=== PATIENT | female | born 1940 | race Caucasian/White ===

== ENCOUNTER 2017-10-31 06:53 | Inpatient (IN) | payer MEDICARE, SELFPAY ==
[2017-10-31 07:49] LABS: Actual Bicarbonate (HCO3a) 20.7 mEq/L (22-26); Base Excess (BEa) -3.2 mEq/L (0 (+/-) 2.5); CO2 Tension 33.6 mmHg (35.0-45.0); O2 Tension (PaO2) 76.5 mmHg (80.0-100.0); pH, Arterial 7.41 (7.35-7.45)
[2017-10-31 07:50] LABS: Analyzer IN Cardio ER; Calcium, Ionized 1.1 mmol/L (1.12-1.30); Hematocrit-ABG 41.6 % (36.0-47.0); Hemoglobin (Hb) 13.2 g/dL (12.0-16.0); Puncture Site RRA
[2017-10-31 08:10] LABS: Hemoglobin 13.9 g/dL (12.0-16.0); Mean Corpuscular HGB CONC 31.3 g/dL (32.0-36.0); Mean Corpuscular Hemoglobin 34.5 pg (27.0-31.0); Mean Platelet Volume 8.1 fL (7.4-10.4); Platelet Count 192 thou/uL (130-400); RBC Distribution Width 17.4 % (11.5-14.5); Red Blood Cell (RBC) Count 4.01 mill/uL (4.20-5.40); White Blood Cell (WBC) Count 12.3 thou/uL (4.8-10.8)
[2017-10-31 08:16] LABS: INR-International Normal Ratio 1.7; PTT 27.3 SEC (22.9-36.1); Prothrombin Time 20.9 SEC (12.0-14.7)
[2017-10-31 08:32] LABS: Band 7 % (5-11); Lymphocytes 2 % (21-51); MDiff Complete? YES; Myelocyte 1 % (0-0); Neutrophil 90 % (42-75); Polychromasia MODERATE = 3-4 cells (100X) (0-2/hpf)
[2017-10-31 08:39] LABS: AST (SGOT) 2072 U/L (5-34); Anion Gap 18 mmol/L (10-20); Bilirubin, Total 2.3 mg/dL (0.2-1.2); Calc. Creatinine Clearance 0 mL/min (70-130); Calcium 8.5 mg/dL (7.8-10.44); Carbon Dioxide 16 mmol/L (23-31); Chloride 106 mmol/L (98-107); Estimated GFR-MDRD 47; Potassium 4.9 mmol/L (3.5-5.1); Sodium 135 mmol/L (136-145); Troponin I 0.117 ng/mL (< 0.028)
--- NOTE | 2017-10-31 08:48 | RAD ---
CHEST ONE VIEW: History: Pulmonary fibrosis. Chest pain. Dyspnea. Comparison: 12-31-11 FINDINGS: Cardiac silhouette is magnified by projection. Pulmonary vasculature is accentuated by shallow inspir ation. Interstitial fibrotic changes throughout each lung have progressed since the prior study. Line ar atelectasis projects over each lung. Mediastinum is midline. No lobar consolidation or evidence of pneumothorax. Deformity of the left humeral neck suggests an old injury. IMPRESSION: Interval progression of interstitial fibrosis. POS: [facility]
[2017-10-31 08:53] LABS: D-Dimer Test Greater than 20.00 *mcg/mL (0.27-0.43)
[2017-10-31] MEDS ORDERED: cefTRIAXone\\ROCEPHIN 2 GM VIAL ONE (08:56)
[2017-10-31 08:57] LABS: ALT (SGPT) 3024 U/L (8-55); Alkaline Phosphatase 135 U/L (40-150); BUN (Urea Nitrogen) 35 mg/dL (9.8-20.1); Globulin 3.2 g/dL (2.4-3.5); Glucose 131 mg/dL (83-110)
--- NOTE | 2017-10-31 09:13 | CT ---
BRAIN CT WITHOUT IV CONTRAST: HISTORY: A 77-year-old female with a history of shortness of breath and difficulty breathing. Loss of appetit e and altered mental status. FINDINGS: Atrophy and chronic white matter ischemic changes. No focal mass or midline shift. No intra- or ext raaxial hemorrhage. Left centrum semiovale small white matter infarct. IMPRESSION: Atrophy, chronic white matter ischemic changes, and old infarct changes. No mass or bleed or other a cute process. POS: [facility]
[2017-10-31 09:20] LABS: Bilirubin Negative (Negative); Blood, Urine Moderate (Negative); Clarity CLOUDY (Clear); Glucose, Urine (Dipstick) Negative (Negative); Leukocyte Small (Negative); Nitrite Negative (Negative); Protein, Urine (Dipstick) 300 mg/dL (Neg-Trace); Specific Gravity, Urine 1.027 (1.002-1.036)
[2017-10-31 09:22] LABS: RBC/HPF 21-50 HPF (0-3); WBC/HPF 0-3 HPF (0-3)
[2017-10-31 09:24] LABS: Pathc Cast-AUWi Flag 3.92 (0-2.49)
[2017-10-31 09:44] LABS: Bacteria/HPF Rare-Few HPF (None Seen); Hyaline Casts/LPF 4-6 HYALINE CAST LPF (0-3 Hyaline); Renal Epithelial 0-3 HPF (0-3); Yeast-All Forms Rare HPF (None Seen)
[2017-10-31 09:45] LABS: Manual Microscopic Reviewed? No Path Casts Seen
[2017-10-31] MEDS ORDERED: Benzonatate 100 MG CAP PO PRN (10:20)
[2017-10-31] MEDS ORDERED: Mag-Al 1200 mg/1200 mg/30 ML UDCUP PO PRN (10:20)
[2017-10-31] MEDS ORDERED: Lorazepam 1 MG TAB PO PRN (10:20)
[2017-10-31] MEDS ORDERED: Acetaminophen 325 MG TAB PO PRN (10:20)
[2017-10-31] MEDS ORDERED: Docusate 100 MG CAP PO PRN (10:20)
[2017-10-31] MEDS ORDERED: Lorazepam 2 MG/ML VIAL SLOW IVP PRN (10:20)
[2017-10-31] MEDS ORDERED: Ondansetron HCl/PF 4 MG/2 ML Vial IVP PRN (10:20)
[2017-10-31 10:28] VITALS: BMI 27.5
[2017-10-31 11:02] LABS: Troponin I 0.145 ng/mL (< 0.028)
[2017-10-31] MEDS ORDERED: ISOVUE-370 76%-LOCM 1 ML ONE (11:15)
--- NOTE | 2017-10-31 11:32 | CT ---
CT ARTERIOGRAM CHEST WITH IV CONTRAST AND 3D MIP IMAGING: History: Chest pain, dyspnea. FINDINGS: No comparison. There is good contrast opacification of the pulmonary arteries. Contrast had not reach ed the aortic arch at the time of imaging. There is calcification within the arterial structures. Lungs are hyperinflated with emphysematous changes at each apex. Honeycombing is apparent at the lung bases with prominent peripheral interstitial thickening. At the posterior aspect of the junction of the pleural fissures on the right, a triangular area of soft tissue density measures up to 2.0 cm laquita meter and is favored to represent atelectasis. Scarring is present at each apex. No pleural fluid or mediastinal adenopathy. Within the partially visualized upper abdomen, cysts arise from the kidneys. There are degenerative a nd post-operative changes of the lumbar spine with multilevel vertebroplasty cement. At the posterior aspect of the superior segment right lower lobe, a 1.0 cm soft tissue density nodule abuts the posterior pleura. IMPRESSION: 1. No CT evidence of pulmonary embolus. 2. Left lower lobe peripheral nodule posterior, 1.0 cm. Please consider follow up CT in 6 months to e valuate for stability. 3. Severe COPD and interstitial fibrotic lung disease. 4. Atherosclerosis. POS: [facility]
[2017-10-31 11:59] LABS: Lactic Acid 2.4 mmol/L (0.5-2.2)
[2017-10-31] MEDS ORDERED: Furosemide 40 MG/4 ML VIAL SLOW IVP SCH ×2 (12:45→19:00)
--- NOTE | 2017-10-31 13:45 | ULT ---
ABDOMINAL ULTRASOUND: Date: 10-31-17 Provided Clinical History: Transaminitis and abdominal pain. FINDINGS: Visualized abdominal aorta, IVC, and pancreas appear normal. The liver demonstrates no evidence for m ass or intrahepatic biliary ductal dilatation. Increased echogenicity of the hepatic parenchyma sugge sts fatty infiltration. Common duct is not dilated. Right kidney demonstrates probable prominent extr arenal pelvis without evidence of caliectasis. Kidneys demonstrate no evidence for mass. Left kidney demonstrates no evidence for hydronephrosis. The spleen is not enlarged and demonstrates no focal abn ormality. The gallbladder is not visualized, compatible with the provided clinical history of prior c holecystectomy. IMPRESSION: 1. Findings suggesting fatty infiltration of the liver. 2. Prominence of the right renal pelvis which may reflect an extrarenal pelvis. If there is concern f or hydronephrosis, consider CT. POS: [facility]
[2017-10-31 14:21] LABS: Troponin I 0.187 ng/mL (< 0.028)
--- NOTE | 2017-10-31 14:23 | CON ---
DATE OF SERVICE: 10/31/2017 SERVICE: Pulmonary Medicine. REASON FOR CONSULTATION: IPF. HISTORY OF PRESENT ILLNESS: The patient is a 77-year-old [facility] female with past medical history significant for pulmonary fibrosis. This was diagnosed about 5 or 6 years ago. Since then, she has had progressive respiratory failure. At night, she sleeps under a nonrebreather. During the daytime, she requires a significant amount of oxygen. She was in her usual state of health until about 2 or 3 months ago. She had increasing dyspnea that prompted her move from [facility] to [place] permanently. The reason they made that change was because it was difficult for the patient to breathe at elevation. As such, she subsequently relocated here. Everything was fine until about 3 weeks ago. She started having panic attacks associated with exertion. Then, she started having mild panic attacks in the middle of the night which became increasingly severe. She did wake up in the middle of the night choking, gasping, and coughing. Last night, she had two separate panic attacks prompting her family to bring her to the hospital. In the hospital, there is evidence of significant volume overload. She has no known heart issues other than an arrhythmia that requires no medication. She denies any current fevers, chills, nausea or vomiting. She did not have any significant cough or sputum production, beyond baseline. PAST MEDICAL HISTORY: 1. Pulmonary fibrosis. 2. Chronic hypoxic respiratory failure. 3. Rheumatoid arthritis. 4. Chronic obstructive pulmonary disease, possible. 5. Gastroesophageal reflux disease. 6. Hypertension. PAST SURGICAL HISTORY: 1. Cholecystectomy. 2. Appendectomy. SOCIAL HISTORY: Negative for alcohol, tobacco or illicit drug use currently. She has no exposure to chemicals, dust or asbestos. She frequently visited [facility]. She has an [id number] history of smoking, but quit well over 10 years ago. FAMILY HISTORY: Noncontributory. ALLERGIES: No known drug allergies. MEDICATIONS: List of her outpatient and inpatient medications were reviewed. A couple of small updates were made. REVIEW OF SYSTEMS: General, head, ears, eyes, nose, throat, cardiovascular, respiratory, gastrointestinal, genitourinary, musculoskeletal, neurologic, and skin is negative except as mentioned in the HPI. PHYSICAL EXAMINATION: VITAL SIGNS: Afebrile, pulse 79, blood pressure 145/62, respirations 15, saturation 88% on 37% FiO2 and a PEEP of 5. GENERAL: The patient is awake and alert, in no apparent distress. LUNGS: Decent air entry. Dependently there are extensive crackles. Anteriorly , it is clear to auscultation. There is not much of a prolonged expiratory phase. No wheezing or rhonchi are appreciated. HEART: Normal rate, regular. ABDOMEN: Soft, nontender, nondistended. Bowel sounds positive. MUSCULOSKELETAL: No cyanosis or clubbing. There is 2+ pitting in the bilateral lower extremities. NEUROLOGIC: Grossly nonfocal. LABORATORY DATA: WBC 12.3 and uptrending, hemoglobin 13.9, platelets 192,000. Band count is only 7%. INR 1.7. A pH 7.41, pCO2 of 33, pO2 of 76. Creatinine 1.12, AST and ALT are both quite elevated in the 1000 range. BNP 2200, troponin is up trending to 0.145, lactate is going down to 2.4. Urinalysis is positive for leukocyte esterase and red blood cells. There are very few white blood cells present; however. Nitrites are negative. Urine culture is unremarkable to date. IMAGIN. Ultrasound of the abdomen demonstrates fatty infiltration of the liver. There is prominence of the right renal pelvis which may reflect extrarenal pelvis. There is no biliary dilation. 2. CT of the chest demonstrates extensive fibrotic lung changes in addition to emphysematous changes. No pulmonary embolism was identified on the CT. There is a small pulmonary nodule. It is also present. 3. Chest x-ray demonstrates chronic interstitial lung changes. 4. CT of the brain demonstrates no acute intracranial abnormality. There is atrophy of the white matter. ASSESSMENT: 1. Acute on chronic hypoxic respiratory failure. 2. Pulmonary fibrosis 2/2 RA, with acute exacerbation. 3. Rheumatoid arthritis, previously treated with Xeljanz. 3. Chronic obstructive pulmonary disease with acute exacerbation. 4. Shock liver. 5. Acute heart failure. PLAN: I agree with the ultrasound of the heart. We will aggressively diurese the patient until she returns to euvolemia. My suspicion is that we are dealing with a volume mediated exacerbation of severe lung disease. That being said, I will start an antibiotic and we will continue steroids. Pulmonary Critical Care will continue to follow along while the patient remains in this location. BiPAP will be weaned away. I will switch her over to BiPAP at 7/5, and decrease FiO2 as tolerated. 70 minutes have been devoted to this patient in various activities. I personally reviewed all imaging studies and laboratory data noted within this document. For fifty percent of this time, I was interacting with the patient at the bedside or coordinating care with the care team. For the remainder of the time I was immediately available to the patient in the hospital unit. HARESH
[2017-10-31] MEDS: Furosemide 40 MG/4 ML VIAL SLOW IVP SCH (14:27)
--- NOTE | 2017-10-31 17:06 | HP ---
PRIMARY CARE PHYSICIAN: Phu Lu M.D. CHIEF COMPLAINT: Severe panic attack. HISTORY OF PRESENT ILLNESS: Ms. Bates is a pleasant 77-year-old female who has a history of pulmon kt fibrosis, which is secondary to rheumatoid arthritis. She is on home oxygen at home. She came t o the emergency room as she was brought in by family members because she was having what they describ ed as a panic attack. They says that it happened several times and then last night it was the worse. They describe this attack as that she loses her strength, she was feeling extremely weak, she began trying to rip off her oxygen mask at home and was basically yelling out saying she feels like she wa s going to . Her daughter did not know what to do and as a result she brought her to the emergenc y room for evaluation. During these attacks, she feels lightheaded as well. She also feels like she is going to throw up, but she denies having any chest pain and it is difficult for me to determine w hether or not she is more short of breath. I was told by the ER physician that her oxygen saturation s would go down in the 70s; however, I was not able to elicit this history from the family. They say that she has been having these attacks twice a day for the last 2 weeks and it appears as if they ar e getting progressively worse. She also noted some increasing in lower extremity edema over the last 3-4 months, but she denies having any PND or orthopnea. She also denies any cough or congestion and no fevers or chills. In the ER, she was evaluated and had a chest x-ray in which she had bilateral interstitial pulmonary markings; however, there was no evidence of any consolidation and there was al so poor inspiratory effort. She had a CT scan of the brain, which was negative. It is also noted th at she had a significant transaminitis as well as an elevated D-dimer and natriuretic peptide and she is being admitted for further evaluation and treatment. REVIEW OF SYSTEMS: This is somewhat difficult to obtain as the patient is short of breath and is cur rently on BiPAP, but in general, she has had no fevers, no chills, no night sweats. No report of tosin ght loss. HEENT: No headaches. She has had some feeling of dizzy and lightheadedness, no sore thro at, rhinorrhea, neck pain, no adenopathy. Pulmonary: She has been having increasing shortness of br eath, but no cough, no congestion, no hemoptysis. Cardiovascular: She denies any chest pain. There has been no PND, no orthopnea. She has had increasing lower extremity edema. Gastrointestinal: Tamir phipps has had no abdominal pain, but she has had some nausea, no vomiting, no change in bowels. Genitour inary: No urinary frequency, hematuria, no hesitancy. Musculoskeletal: No muscle pains, weakness o r joint pains. Neurologic: No focal weakness, numbness, no seizures. Psychiatric: She does appear to be more anxious, but no history of any hoarse, complaints of any depression. PAST MEDICAL HISTORY: Significant for pulmonary fibrosis in which she is on at least 4-6 liters of o xygen at home. Also, rheumatoid arthritis. PAST SURGICAL HISTORY: She has had a cholecystectomy, appendectomy. ALLERGIES: BACTRIM. FAMILY HISTORY: No history of any known inheritable diseases. SOCIAL HISTORY: She is a former smoker. She quit 16 years ago. Prior to that, she smoked about a p ack a day for at least 40 years. She occasionally drinks. She is , has two children. Her da ughter, Shaista Vance, is her surrogate decision maker. Her code status is FULL CODE as she has n ot really thought much about code status prior. MEDICATIONS: Some of which are from [facility] and these include omeprazole, Anoro Ellipta, Xeljanz, folic acid, Visionace, Byron 30 mg, amlodipine 5 mg daily, Pacofen which is similar to baclofen and medication similar to Pulmicort. PHYSICAL EXAMINATION: GENERAL: She is alert and oriented. She appears to be in some distress due to dyspnea. VITAL SIGNS: Her blood pressure was 132/91, heart rate 77, respiratory rate of 28, temperature is 99 .7. HEENT: Pupils are equal, round, and reactive. Extraocular muscles are intact. Her sclerae are anic teric. Throat: No erythema, no exudates. NECK: No adenopathy, no bruits. LUNGS: Clear to auscultation. I did not appreciate any wheezing or rales; however, there was a decr ease in air movement. She may have had some fine crackles, but it was very difficult to hear. CARDIOVASCULAR: She had a normal S1, S2. I did not appreciate an S3 or S4. No murmurs, clicks or r ubs. ABDOMEN: Soft, it was nontender, nondistended. Positive for bowel sounds. No rebound or guarding. EXTREMITIES: She had some trace nonpitting edema. NEUROLOGIC: Neurologically, the exam is nonfocal. LABORATORY DATA AND IMAGING: White blood cell count was 12.3, hemoglobin 13.9, hematocrit is 44.3, p latelet count is 192. INR was 1.7. Sodium 135, potassium 4.9, chloride is 106, CO2 is 16, BUN of 35 , creatinine 1.12, glucose is 131. Lactic acid was 3.5, total bilirubin was 2.3, AST was 2072, ALT i s 3024. Natriuretic peptide was 2264. Troponin was 0.017. She had an EKG to sinus rhythm. There w as a Q-wave, isolated Q in lead III, otherwise nonspecific ST wave changes and she had a CT scan of t he brain in which there was no acute intracranial abnormalities. There was no mass or bleed. ASSESSMENT AND PLAN: 1. This is a 77-year-old female that presents to the emergency room with complaints of panic-like sy mptoms. I suspect this is likely due to respiratory distress. She has a history of what appears to be advanced pulmonary fibrosis. She sees Dr. Farfan as her diffuser operator. She appears to have deco mpensated and therefore is being admitted. She is currently requiring BiPAP to improve her oxygenati on. We will go ahead and continue the BiPAP and we will enlist the help of our pulmonologists here o n staff to help with other recommendations. We will continue the inhaled steroids, nebulizer as well as DuoNebs as needed and follow up on the CT angiogram of the chest. Her proBNP is elevated as well as she is reported to have increasing lower extremity edema. As a result, may have some degree of v olume overload which may be contributing to her symptoms as well and may benefit from a trial of diur esis. 2. Transaminitis, the etiology of this is unclear. This could be related to some extraarticular man ifestation of the rheumatoid arthritis or could be due to passive congestion of the liver as a result of right heart failure due to her severe lung disease. She may have had an echo done at [facility] where she normally receives her care. However, there is no record of an echo in our system, lik sahil we will go ahead and repeat the echo again at this time and also we will defer to Pulmonology as to the potential causes of the elevated transaminases and may also need to get GI opinion as well and we will order an abdominal ultrasound as well. 3. Elevated troponin, I suspect this is likely demand ischemia due to her advanced pulmonary fibrosi s and unless there is evidence of significant wall motion abnormality on echo, I would refrain from c onsulting Cardiology at this time. Further recommendations are to follow based on the patient's clin ical course.
--- NOTE | 2017-10-31 18:50 | PDOC.EVN ---
Event Note - Event Note Event Note: I spoke with the patient with regards to advanced care planning, as well as the patient's daughter Celso, who was present at the bedside. She has advanced Pulmonary fibrosis, on home oxygen at a fairly high rate. When I came to see her, she asked several times to go home, and she felt she would do better at home, despite her obvious respiratory distress. I asked her if her condition would worsen would she want to be placed on a ventilator, and she says she had not given it any thought before today. I explained to her and her daughter that this condition is not curable, and they should begin to have these discussions. They both appeared a bit bewildered, and said they would give it some more thought. At this time since she is unable to make a decision, she will be a FULL CODE. ACP- 15 minutes
[2017-10-31] MEDS: Enoxaparin Sodium 30 MG/0.3 ML SYRINGE SC SCH (20:17)
[2017-11-01 04:54] LABS: #Eosinphils 0.1 thou/uL (0.0-0.7); #Lymphocytes 0.4 thou/uL (1.20-3.40); #Monocytes 0.6 thou/uL (0.11-0.59); %Basophils 0.4 % (0.0-1.0); %Eosinophils 0.8 % (0.0-10.0); %Monocytes 5.5 % (0.0-10.0); %Neutrophils 89.4 % (42.0-75.0); Hemoglobin 13.1 g/dL (12.0-16.0); Mean Corpuscular Hemoglobin 35.5 pg (27.0-31.0); Mean Platelet Volume 8.9 fL (7.4-10.4); Platelet Count 166 thou/uL (130-400); RBC Distribution Width 16.9 % (11.5-14.5); Red Blood Cell (RBC) Count 3.69 mill/uL (4.20-5.40); White Blood Cell (WBC) Count 10.1 thou/uL (4.8-10.8)
[2017-11-01 05:15] LABS: Anion Gap 16 mmol/L (10-20); BUN (Urea Nitrogen) 32 mg/dL (9.8-20.1); Calc. Creatinine Clearance 37 mL/min (70-130); Calcium 8.5 mg/dL (7.8-10.44); Carbon Dioxide 27 mmol/L (23-31); Chloride 98 mmol/L (98-107); Estimated GFR-MDRD 41; Glucose 122 mg/dL (83-110); Sodium 137 mmol/L (136-145)
[2017-11-01 05:18] LABS: ALT (SGPT) 2553 U/L (8-55); AST (SGOT) 2485 U/L (5-34); Albumin 3.3 g/dL (3.4-4.8); Alkaline Phosphatase 124 U/L (40-150); Bilirubin, Direct 0.7 mg/dL (0.1-0.3); Bilirubin, Total 1.3 mg/dL (0.2-1.2)
[2017-11-01] MEDS: Furosemide 40 MG/4 ML VIAL SLOW IVP SCH ×2 (05:56→15:55)
[2017-11-01] MEDS: predniSONE 20 MG TAB PO SCH (08:04)
--- NOTE | 2017-11-01 13:59 | PDOC.PN ---
- Subjective Encounter Start Date: 11/01/17 Encounter Start Time: 13:50 Subjective: f/u for acute/chronic hypoxic resp failure, acute CHF exacerbation and -: pulmonary fibrosis/COPD. Remains on O2 by VM. Receiving Levaquin, -: Lasix, Duonebs and Prednisone. - Objective Resuscitation Status: Resuscitation Status FULL:Full Resuscitation MAR Reviewed: Yes Vital Signs & Weight: Vital Signs (12 hours) Temp Pulse Resp BP Pulse Ox 11/01/17 12:03 78 20 93 L 11/01/17 12:00 98.0 F 94 24 H 124/77 93 L 11/01/17 08:00 98.0 F 85 20 92 L 11/01/17 07:09 94 L 11/01/17 07:08 85 20 94 L 11/01/17 07:00 98.2 F 80 20 134/86 96 11/01/17 03:41 98.2 F 83 17 120/67 93 L 11/01/17 02:00 77 20 127/82 94 L Weight Weight 137 lb 8 oz I&O: 10/31/17 11/01/17 11/02/17 06:59 06:59 06:59 Intake Total 620 Output Total 3075 200 Balance -2455 -200 Result Diagrams: 11/01/17 03:38 11/01/17 03:38 Additional Labs: Microbiology 10/31/17 08:50 Urine Straight Catheter Urine Culture - Preliminary NO GROWTH AT 24 HOURS 10/31/17 07:40 Venous blood - Right Hand Blood Culture - Preliminary Specimen has been received and culture in progress. No Growth to date. 10/31/17 07:30 Venous blood - Left Hand Blood Culture - Preliminary Specimen has been received and culture in progress. No Growth to date. Laboratory Tests 10/31/17 10/31/17 10/31/17 07:40 07:40 07:40 WBC 12.3 H MCV 110.0 H Neutrophils % Neutrophils % (Manual) 90 H Creatinine 1.12 H Lactic Acid AST 2072 H ALT 3024 H Troponin I B-Natriuretic Peptide 2264.7 H 10/31/17 10/31/17 10/31/17 07:40 07:40 10:24 WBC MCV Neutrophils % Neutrophils % (Manual) Creatinine Lactic Acid 3.5 H AST ALT Troponin I 0.117 H 0.145 H B-Natriuretic Peptide 0511/01/17 11/01/17 13:35 03:38 03:38 WBC MCV Neutrophils % 89.4 H Neutrophils % (Manual) Creatinine Lactic Acid AST 2485 H ALT 2553 H Troponin I 0.187 H B-Natriuretic Peptide EKG Reviewed by me: Yes (Tele - SR in 90's, 2 runs SVT ) Phys Exam - Physical Examination Constitutional: NAD HEENT: PERRLA, moist MMs, sclera anicteric, oral pharynx no lesions Neck: no nodes, no JVD, supple, full ROM diminished bibasilar crackles Respiratory: no wheezing Cardiovascular: RRR, no significant murmur, no rub, gallop Gastrointestinal: soft, non-tender, no distention, positive bowel sounds Musculoskeletal: no edema, pulses present Neurological: non-focal, normal sensation, moves all 4 limbs Psychiatric: normal affect, A&O x 3 Skin: no rash, normal turgor, cap refill <2 seconds Dx/Plan (1) Acute CHF (congestive heart failure) Code(s): I50.9 - HEART FAILURE, UNSPECIFIED Status: Acute Qualifiers: Heart failure type: unspecified Qualified Code(s): I50.9 - Heart failure, unspecified Comment: Continue Lasix 40mg IV BID, monitor I/O's, daily weight, obtain 2D echo for evaluation of EF and wall motion (2) Acute and chronic respiratory failure with hypoxia Code(s): J96.21 - ACUTE AND CHRONIC RESPIRATORY FAILURE WITH HYPOXIA Status: Acute Comment: Improved oxygenation and off initial BiPAP, wean as clinically indicated and tolerated (3) Shock liver Code(s): K72.00 - ACUTE AND SUBACUTE HEPATIC FAILURE WITHOUT COMA Status: Acute Comment: Likely due to CHF, abd sono showed no obstruction, Hep A/B/C panel pending, serial monitoring, Hepatic doppler pending (4) CKD (chronic kidney disease), stage III Code(s): N18.3 - CHRONIC KIDNEY DISEASE, STAGE 3 (MODERATE) Status: Chronic Comment: Unclear baseline renal status, avoid nephrotoxic meds and contrast media, serial monitoring (5) Pulmonary fibrosis Code(s): J84.10 - PULMONARY FIBROSIS, UNSPECIFIED Status: Chronic Comment: Continue pulmonary supportive mgmt, continue Anoro Ellipta, Prednisone (6) SVT (supraventricular tachycardia) Code(s): I47.1 - SUPRAVENTRICULAR TACHYCARDIA Status: Acute Comment: Likely due to co-morbid conditions and poor respiratory status, consult Cardiology, obtain 2D echo - Plan plan discussed w/ family, continue antibiotics, PT/OT, manager social work, respiratory therapy, DVT proph w/SCDs Stable currently -: Continue Lasix 40mg IV BID -: Obtain 2D echo for EF -: Continue Prednisone, Levaquin -: AM lab: CMP * .
[2017-11-01 14:13] LABS: HBCM Index 0.09 S/CO (0-0.79); HBSAg Index 0.19 S/CO (0-0.99); Hep A IgM AB Non-Reactive (NonReactive); Hep B Surf Ag Non-Reactive S/CO (NonReactive); Hep C IgG Ab Non-Reactive (NonReactive); Hep C Index 0.18 S/CO (0-0.79); Hepatitis B Core IGM Abs Non-Reactive (NonReactive)
--- NOTE | 2017-11-01 19:51 | HP ---
DATE OF SERVICE: 11/01/2017 SERVICE: Pulmonary Medicine. HISTORY OF PRESENT: The patient is doing fine from a respiratory standpoint. Her breathing is actually a little bit better. She still feels extremely fatigued and has no appetite. Otherwise, there has been no interval change to her condition. PHYSICAL EXAMINATION: VITAL SIGNS: Afebrile, pulse 94, blood pressure 124/77, respirations 24, saturation 93% on 50% ventimask. GENERAL: The patient is awake and alert, in no apparent distress. LUNGS: Crackles are present dependently, but a little less intense today. HEART: Normal rate, regular. ABDOMEN: Soft, nontender, nondistended. Bowel sounds are positive. MUSCULOSKELETAL: No cyanosis or clubbing. There is no pitting in the bilateral lower extremities today. GENITOURINARY: No Jenkins. NEUROLOGIC: Grossly nonfocal. LABORATORY DATA: WBC 10.1, hemoglobin 13.1, platelets 166,000. Neutrophils are 90%. INR 1.7. Creatinine 1.27 and gently up trending. BUN 32, has improved. Basic metabolic profile is otherwise unremarkable. AST is up trended to 2500, ALT has improved to 2500. Total bilirubin is also down trending. Alkaline phosphatase remains normal. Troponin is increasing still. Blood cultures x2 and urine culture are unremarkable. ASSESSMENT: 1. Acute on chronic hypoxic respiratory failure. 2. Acute liver injury. 3. Pulmonary fibrosis with acute exacerbation. 4. Rheumatoid arthritis. 5. Chronic obstructive pulmonary disease with acute exacerbation. 6. Acute heart failure, suspected. PLAN: We will ask GI to see the patient to make certain we were not missing anything large. I will get a Doppler on the hepatic structures to make certain there is normal blood flow. Echocardiogram was suspended. We will reorder that study. Pulmonary Critical Care will continue to follow along. She will need to remain in the IMCU for the time being. We will wean away FiO2 as tolerated as we diurese the patient back into a euvolemic state. She is quickly approaching this. [facility]
--- NOTE | 2017-11-01 20:00 | CON ---
DATE OF CONSULTATION: 11/01/2017 HISTORY OF PRESENT ILLNESS: The patient is a 77-year-old female with severe pulmonary fibro sis who presented with increasing shortness of breath. She was started on citalopram a couple of day s ago because they felt she was having panic attacks. She feels lightheaded during these attacks. S he has had no nausea or vomiting. She denies any abdominal pain. She denies prior history of elevat ed liver function tests. She has moved here from [facility] approximately 6 months ago. PAST MEDICAL HISTORY: Pulmonary fibrosis, on home oxygen, rheumatoid arthritis. PAST SURGICAL HISTORY: Includes cholecystectomy and appendectomy. ALLERGIES: BACTRIM. SOCIAL HISTORY: She is a former smoker, does not drink. FAMILY HISTORY: Negative for GI or liver disease. MEDICATIONS: Includes Emflaza 30 mg p.o. daily, Ellipta 1 every day, Xeljanz 5 mg p.o. daily, omepra zole 40 mg p.o. every day, lorazepam 2 mg p.o. at bedtime, Ecotrin 81 mg p.o. daily, Norvasc 5 mg p.o . daily. ALLERGIES: Include PENICILLIN, SULFA, BACTRIM. REVIEW OF SYSTEMS: CONSTITUTIONAL: No fever or chills, no weight loss. EYES: No blurred vision or double vision. ENT: No sore throat or earaches. CARDIOVASCULAR: No chest pain or palpitation. P ULMONARY: Positive for shortness of breath. Positive for dyspnea on exertion. Positive for orthopn ea. GI: See above. : No hematuria or dysuria. MUSCULOSKELETAL: No joint pain or muscle weakne ss. SKIN: No rashes. NEUROLOGIC: No numbness or seizure activity. PHYSICAL EXAMINATION: GENERAL: Shows a thin female in no acute distress. VITAL SIGNS: Temperature is 98.0, pulse 78, respiratory rate 20, blood pressure 124/77. HEENT: Unremarkable. NECK: Supple. CHEST: Show bilateral rhonchi. CARDIOVASCULAR: Regular rate and rhythm. ABDOMEN: Soft and nontender without organomegaly or masses. EXTREMITIES: Show some edema. LABORATORY DATA AND IMAGING DATA: Shows white blood cell count of 10.1, hemoglobin 13, hematocrit 38 .5, MCV of 104, and platelet count 166. PT is 20.9 with an INR of 1.7. Chemistries significant for BUN 32, creatinine 1.27, glucose 122, total bilirubin 1.3, AST 2485, ALT 2553, albumin 3.3, BNP is 22 64. Abdominal ultrasound shows findings suggestive of fatty infiltration of the liver, prominence of the right renal pelvis. CTA showed no evidence of pulmonary embolism, left lower lobe peripheral no dule, severe COPD and interstitial fibrotic lung disease, atherosclerosis. Echocardiogram performed at [facility] showed normal right ventricular systolic function, left ventricular ejection fraction was 55%-60%. ASSESSMENT: 1. Markedly elevated transaminases as I suspect this is secondary to her underlying pulmonary fibros is but with an echocardiogram showing normal right ventricular function, this would make that less li jefe. I will review radiologic studies with radiologist and perform a more extensive workup for live r abnormalities. 2. Severe pulmonary fibrosis. 3. Rheumatoid arthritis on Xeljanz. RECOMMENDATIONS: 1. Repeat LFTs. 2. Hepatitis workup. 3. Review radiologic exams.
[2017-11-01] MEDS: Lorazepam 1 MG TAB PO SCH (20:55)
[2017-11-01] MEDS: Enoxaparin Sodium 30 MG/0.3 ML SYRINGE SC SCH (20:56)
[2017-11-02 06:02] LABS: ALT (SGPT) 1820 U/L (8-55); AST (SGOT) 745 U/L (5-34); Albumin 3.2 g/dL (3.4-4.8); Alkaline Phosphatase 121 U/L (40-150); Bilirubin, Direct 0.7 mg/dL (0.1-0.3); Bilirubin, Total 1.2 mg/dL (0.2-1.2)
[2017-11-02 06:11] LABS: Magnesium 1.8 mg/dL (1.6-2.6)
--- NOTE | 2017-11-02 08:51 | ULT ---
HEPATIC DOPPLER: HISTORY: Elevated AST/ALT. COMPARISON: None. TECHNIQUE: Mendez-scale, color-flow, and Doppler imaging with spectral wave-form analysis was performed in the [facility]. FINDINGS: The abdomen ultrasound was performed on 10/31/2017. Currently, only the Doppler images are performed . There is patency and normal directional flow in the visualized middle and left hepatic veins, the lisbet n portal vein, the right portal vein, the left portal vein, and the hepatic artery. The splenic vein and artery are also patent. IMPRESSION: Patent hepatic arterial and venous systems. Appropriate directional flow. POS: [facility]
[2017-11-02] MEDS ORDERED: TOFACITINIB CITRATE 5 MG PO SCH (09:00)
[2017-11-02] MEDS ORDERED: Furosemide 40 MG/4 ML VIAL SLOW IVP SCH (09:00)
[2017-11-02] MEDS ORDERED: [UNRECOGNIZED DRUG - OTHER] PO SCH (09:00)
[2017-11-02] MEDS ORDERED: Non-Formulary Item 1 EACH (Umeclidinium Brm/Vilanterol Tr [Anoro Ellipta] 1 INH) IH SCH (09:00)
[2017-11-02] MEDS ORDERED: Amlodipine 5 MG TAB PO SCH (09:00)
[2017-11-02] MEDS: predniSONE 20 MG TAB PO SCH (09:02)
[2017-11-02] MEDS: Aspirin 81 mg Enteric Coated Tablet PO SCH (09:02)
[2017-11-02] MEDS ORDERED: Ibuprofen 600 MG TAB PO PRN (11:56)
[2017-11-02] MEDS: Ondansetron ODT 4 MG TAB PO PRN (12:31)
--- NOTE | 2017-11-02 12:36 | PRG ---
DATE OF SERVICE: 11/02/2017 SUBJECTIVE: The patient complains of headache. She is not eating much. OBJECTIVE: VITAL SIGNS: Temperature 98.5, pulse of 100, respiratory rate 19, and blood pressure 129/87. CHEST: Chest shows rhonchi bilaterally. CARDIOVASCULAR: Regular rate and rhythm. ABDOMEN: Benign. LABORATORY DATA: Shows a total bilirubin of 1.2, AST of 745, ALT of 1820, ferritin of 1826. Hepatit is panel is negative. ASSESSMENT: 1. Abnormal liver function tests - suspect possibly some hepatic congestion from pulmonary fibrosis. 2. Pulmonary fibrosis. 3. Rheumatoid arthritis, on Xeljanz. RECOMMENDATIONS: Continue to follow LFTs.
--- NOTE | 2017-11-02 14:09 | PDOC.PN ---
- Subjective Encounter Start Date: 11/02/17 Encounter Start Time: 14:10 Subjective: f/u for acute/chronic hypoxic resp failure and acute diast CHF on O2 by VM. -: Overall feeling better. Less SOB, sitting in chair. No CP or fever. - Objective Resuscitation Status: Resuscitation Status FULL:Full Resuscitation MAR Reviewed: Yes Vital Signs & Weight: Vital Signs (12 hours) Temp Pulse Resp BP Pulse Ox 11/02/17 13:14 80 16 11/02/17 12:03 98.4 F 112 H 18 110/65 94 L 11/02/17 09:02 100 11/02/17 08:30 91 L 11/02/17 08:11 100 11/02/17 08:10 100 16 11/02/17 07:56 98.5 F 83 19 92 L 11/02/17 07:29 98.5 F 83 19 129/87 100 Weight Weight 126 lb 8 oz I&O: 11/01/17 11/02/17 11/03/17 06:59 06:59 06:59 Intake Total 620 350 Output Total 3075 725 Balance -2455 -375 Result Diagrams: 11/01/17 03:38 11/01/17 03:38 Additional Labs: Microbiology 10/31/17 08:50 Urine Straight Catheter Urine Culture - Final NO GROWTH AT 48 HOURS 10/31/17 08:50 Urine Straight Catheter Urine Culture - Preliminary NO GROWTH AT 24 HOURS 10/31/17 07:40 Venous blood - Right Hand Blood Culture - Preliminary Specimen has been received and culture in progress. No Growth to date. 10/31/17 07:40 Venous blood - Right Hand Blood Culture - Preliminary NO GROWTH AT 48 HOURS 10/31/17 07:30 Venous blood - Left Hand Blood Culture - Preliminary Specimen has been received and culture in progress. No Growth to date. 10/31/17 07:30 Venous blood - Left Hand Blood Culture - Preliminary NO GROWTH AT 48 HOURS Laboratory Tests 10/31/17 10/31/17 10/31/17 07:40 07:40 07:40 WBC 12.3 H MCV 110.0 H Neutrophils % Neutrophils % (Manual) 90 H Creatinine 1.12 H Lactic Acid Magnesium Iron TIBC Ferritin Direct Bilirubin AST 2072 H ALT 3024 H Troponin I B-Natriuretic Peptide 2264.7 H 10/31/17 10/31/17 10/31/17 07:40 07:40 10:24 WBC MCV Neutrophils % Neutrophils % (Manual) Creatinine Lactic Acid 3.5 H Magnesium Iron TIBC Ferritin Direct Bilirubin AST ALT Troponin I 0.117 H 0.145 H B-Natriuretic Peptide 10/31/17 11/01/17 11/01/17 13:35 03:38 03:38 WBC MCV Neutrophils % 89.4 H Neutrophils % (Manual) Creatinine Lactic Acid Magnesium Iron TIBC Ferritin Direct Bilirubin 0.7 H AST 2485 H ALT 2553 H Troponin I 0.187 H B-Natriuretic Peptide 11/02/17 11/02/17 11/02/17 04:24 04:24 04:24 WBC MCV Neutrophils % Neutrophils % (Manual) Creatinine Lactic Acid Magnesium 1.8 Iron 98 TIBC 348 Ferritin 1826.62 H Direct Bilirubin 0.7 H AST 745 H ALT 1820 H Troponin I B-Natriuretic Peptide Radiology Reviewed by me: Yes (Abd sono - neg for venous thrombus) EKG Reviewed by me: Yes (Tele - intermittent SVT in 110's) Phys Exam - Physical Examination Constitutional: NAD HEENT: PERRLA, moist MMs, sclera anicteric, oral pharynx no lesions Neck: no nodes, no JVD, supple diminished with occasional crackles Respiratory: no wheezing, no rhonchi S1, S2 Cardiovascular: RRR, no significant murmur, no rub, gallop Gastrointestinal: soft, non-tender, no distention, positive bowel sounds Musculoskeletal: no edema, pulses present Neurological: non-focal, normal sensation, moves all 4 limbs Psychiatric: normal affect, A&O x 3 Skin: no rash, normal turgor, cap refill <2 seconds Dx/Plan (1) Acute CHF (congestive heart failure) Code(s): I50.9 - HEART FAILURE, UNSPECIFIED Status: Acute Qualifiers: Heart failure type: unspecified Qualified Code(s): I50.9 - Heart failure, unspecified Comment: Continue Lasix 40mg IV daily, monitor I/O's, daily weight, diastolic dysfunction noted on most recent echo 10/21/17, EF 55-60%, recheck Echo with attention to RV and Tricuspid excursion as concern for pulmonary HTN (2) Acute and chronic respiratory failure with hypoxia Code(s): J96.21 - ACUTE AND CHRONIC RESPIRATORY FAILURE WITH HYPOXIA Status: Acute Comment: Improved oxygenation and off initial BiPAP, VM with weaning as clinically tolerated (3) Shock liver Code(s): K72.00 - ACUTE AND SUBACUTE HEPATIC FAILURE WITHOUT COMA Status: Acute Comment: Likely due to CHF, abd sono showed no obstruction, Hep A/B/C panel pending, serial monitoring, Hepatic doppler negative, improving LFT trend (4) CKD (chronic kidney disease), stage III Code(s): N18.3 - CHRONIC KIDNEY DISEASE, STAGE 3 (MODERATE) Status: Chronic Comment: Unclear baseline renal status, avoid nephrotoxic meds and contrast media, serial monitoring (5) Pulmonary fibrosis Code(s): J84.10 - PULMONARY FIBROSIS, UNSPECIFIED Status: Chronic Comment: Continue pulmonary supportive mgmt, continue Anoro Ellipta, Prednisone (6) SVT (supraventricular tachycardia) Code(s): I47.1 - SUPRAVENTRICULAR TACHYCARDIA Status: Acute Comment: Likely due to co-morbid conditions and poor respiratory status, start low-dose Coreg 3.125mg BID - Plan plan discussed w/ family, continue antibiotics, PT/OT, social service coordinator, respiratory therapy, out of bed/ambulate, DVT proph w/SCDs continue supportive mgmt -: Continue Levaquin 750mg po daily -: Continue Prednisone 40mg daily -: Continue Lasix 40mg IV daily -: Start Coreg 3.125mg BID * AM lab: CMP, Mg++
--- NOTE | 2017-11-02 14:53 | PRG ---
DATE OF SERVICE: 11/02/2017 SERVICE: Pulmonary Medicine. INTERVAL HISTORY: The patient is doing great from a respiratory standpoint. Her liver function has actually improved a little bit. She denies any current chest pain, nausea, vomiting, fevers or chills. Overnight, there were no events. She has been weaned off of 4 liters nasal cannula, but still remains on her 50% Ventimask. PHYSICAL EXAMINATION: VITAL SIGNS: Afebrile, pulse 112, blood pressure 110/65, respirations 18, saturation 94% on 50% Ventimask. HEENT: Normocephalic, atraumatic. Sclerae are white, conjunctivae pink. Oral mucosa is moist without lesions. LUNGS: Better air entry. No prolonged expiratory phase is present. Dependent crackles are present, but less extensive. HEART: Normal rate, regular. ABDOMEN: Soft, nontender, and nondistended. Bowel sounds are positive. MUSCULOSKELETAL: No cyanosis or clubbing. There is no pitting in the bilateral lower extremities. NEUROLOGIC: Grossly nonfocal. LABORATORY DATA: AST and ALT are downtrending beautifully. Total bilirubin is down to 1.2. Ferritin 1800. Iron and TIBC are unremarkable. Urinalysis and blood cultures x2 are negative. IMAGING DATA: Ultrasound of the abdomen demonstrates normal blood flow. ASSESSMENT: 1. Acute on chronic hypoxic respiratory failure. 2. Acute liver injury secondary to passive congestion, resolving. 3. Pulmonary fibrosis with acute exacerbation. 4. Rheumatoid arthritis. 5. Chronic obstructive pulmonary disease with acute exacerbation. 6. Normal echocardiogram at [facility] recently. DISCUSSION AND PLAN: With the massive volume overload on the recent CT of the chest, I am doubtful that her RV function is perfectly normal as suggested on the echocardiogram done at [facility]. As such, I wanted to repeat a limited echo of the RV with attention to the tricuspid annular systolic excursion. Appreciate GI recommendations. If she is doing well tomorrow, she can be considered for transition to the floor and likely home on Friday or Friday of this week. She may benefit from a pulmonary hypertension evaluation in the outpatient setting. HARESH
[2017-11-02] MEDS ORDERED: Carvedilol 3.125 MG TAB PO SCH (17:00)
[2017-11-02 17:01] LABS: ANA Symphony (Qualitative) Negative (Negative); EliA Vaculitis New Method **** NEW METHOD ****; Mitochondrial Ab 0.8 U/mL (<4 Negative); dsDNA IgG Antibody 0.7 IU/mL (<10 Negative)
[2017-11-02] MEDS: Enoxaparin Sodium 30 MG/0.3 ML SYRINGE SC SCH (20:39)
[2017-11-03] MEDS: Lorazepam 1 MG TAB PO SCH ×2 (01:58→21:21)
--- NOTE | 2017-11-03 02:24 | CON ---
DATE OF CONSULTATION: 11/02/2017 HISTORY OF PRESENT ILLNESS: The patient is a 77-year-old, white female with history of pulmonary fibrosis, felt to be secondary to her rheumatoid arthritis. She has had progressive respiratory failure and uses a nonrebreather at night. She also requires oxygen during the day. [place] [facility] to [place]. She was doing well until several weeks ago when she started having panic attacks associated with exertion. She would have episodes of PND, where she would awaken at night coughing and gasping for air. She denies any chest discomfort. She has been found to have SVT here in the hospital, and she denies ever have any palpitations. PAST MEDICAL HISTORY: Rheumatoid arthritis, COPD, GERD, hypertension, pulmonary fibrosis. OPERATIONS: Appendectomy, cholecystectomy. MEDICATIONS AT HOME: Include Norvasc 5 q.a.m., aspirin 81 daily, lorazepam 2 mg at bedtime, omeprazole 10 daily, and Anoro Ellipta. ALLERGIES: PENICILLINS, TRIMETHOPRIM and SULFAMETHOXAZOLE. SOCIAL HISTORY: She does not smoke at the present time. She did have an 80- pack-year smoking history, but stopped 10 years ago. FAMILY HISTORY: Negative for coronary artery disease. REVIEW OF SYSTEMS: Otherwise, unremarkable. PHYSICAL EXAMINATION: VITAL SIGNS: Blood pressure 89/59 after she has received a dose of carvedilol 3.125 approximately 2 hours ago. HEENT: PERRL. LUNGS: Chest revealed somewhat distant breath sounds with occasional crackles. CARDIAC: S1 and S2 are normal, without any S3, S4 or murmurs. ABDOMEN: Normal bowel sounds, without tenderness, organomegaly. EXTREMITIES: Revealed no clubbing, cyanosis or edema. NEUROLOGIC: Grossly intact. SKIN: Warm and dry. LABORATORY: EKG on admission revealed normal sinus rhythm with nonspecific ST and T-wave changes. She has had frequent episodes of supraventricular tachycardia with rates of 150 up to 187 per minute. This probably is AV carrol reentrant tachycardia. White count 10,100, hemoglobin 13.1, hematocrit 38.5, platelets 166,000. INR 1.7. ABGs: A pH 7.41, pCO2 of 33.6, pO2 of 76.5. Sodium 137, potassium 4.0, chloride 98, carbon dioxide 27, BUN 32, creatinine 1.27. AST 2485, ALT 2553. Troponin I 0.187. Hepatitis A, B and C screen is negative. IMPRESSION: 1. 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 2. Normal left ventricular ejection fraction on echocardiogram at [facility] several weeks ago. 3. Pulmonary fibrosis. 4. Rheumatoid arthritis. 5. Hypertension, on Norvasc 5 mg at home. RECOMMENDATIONS: She is unaware when she is having her supraventricular tachycardia. PLAN: I will discontinue the carvedilol since this appears to have made her hypotensive, and we will also discontinue the Norvasc.I feel that she should be placed on Cardizem in the hopes of controlling her blood pressure as well as suppressing the supraventricular tachycardia. If this is not effective, then consideration could be given to radiofrequency ablation. We will follow the patient with you. HARESH
[2017-11-03 04:27] LABS: ALT (SGPT) 1300 U/L (8-55); AST (SGOT) 305 U/L (5-34); Albumin 3.1 g/dL (3.4-4.8); Alkaline Phosphatase 104 U/L (40-150); Anion Gap 14 mmol/L (10-20); BUN (Urea Nitrogen) 43 mg/dL (9.8-20.1); Bilirubin, Total 1.1 mg/dL (0.2-1.2); Calc. Creatinine Clearance 26 mL/min (70-130); Calcium 8.4 mg/dL (7.8-10.44); Carbon Dioxide 33 mmol/L (23-31); Chloride 94 mmol/L (98-107); Estimated GFR-MDRD 32; Globulin 2.6 g/dL (2.4-3.5); Glucose 109 mg/dL (83-110); Magnesium 1.9 mg/dL (1.6-2.6); Potassium 3.4 mmol/L (3.5-5.1); Protein, Total 5.7 g/dL (6.0-8.3); Sodium 138 mmol/L (136-145)
[2017-11-03] MEDS: Aspirin 81 mg Enteric Coated Tablet PO SCH (08:47)
[2017-11-03] MEDS: predniSONE 20 MG TAB PO SCH (08:48)
[2017-11-03] MEDS ORDERED: Potassium Chloride 20 MEQ TAB PO SCH (11:30)
[2017-11-03] MEDS: Sodium Chloride 0.9% 500 ML IV SCH ×2 (11:56→17:07)
--- NOTE | 2017-11-03 14:14 | PDOC.PN ---
- Subjective Encounter Start Date: 11/03/17 Encounter Start Time: 14:15 Subjective: f/u for acute/chronic hypoxic resp failure on chronic O2 supplementation -: at home. Remains on high-flow VM. Hypotension noted after receiving -: Cardizem for intermittent SVT. Feels weak and unable to work with PT - Objective Resuscitation Status: Resuscitation Status FULL:Full Resuscitation MAR Reviewed: Yes Vital Signs & Weight: Vital Signs (12 hours) Temp Pulse Pulse Pulse Pulse Pulse Resp 11/03/17 13:55 91 19 11/03/17 11:37 97.7 F 94 20 11/03/17 11:01 72 85 80 79 11/03/17 08:00 97.9 F 74 18 11/03/17 07:37 97.9 F 74 18 11/03/17 07:12 91 16 11/03/17 03:00 98.0 F 93 20 BP BP BP BP BP Pulse Ox Pulse Ox 11/03/17 13:55 93 L 11/03/17 11:37 90/63 95 11/03/17 11:01 96/59 L 89/62 L 83/53 L 88/52 L 96 11/03/17 08:00 93 L 11/03/17 07:37 91/59 L 93 L 11/03/17 07:12 96 11/03/17 03:00 94/63 97 Pulse Ox Pulse Ox Pulse Ox 11/03/17 13:55 11/03/17 11:37 11/03/17 11:01 79 L 90 L 83 L 11/03/17 08:00 11/03/17 07:37 11/03/17 07:12 11/03/17 03:00 Weight Weight 123 lb 9.6 oz I&O: 11/02/17 11/03/17 11/04/17 06:59 06:59 06:59 Intake Total 350 990 Output Total 103 9255 Balance -375 -735 Result Diagrams: 11/01/17 03:38 11/03/17 03:46 Additional Labs: Microbiology 10/31/17 08:50 Urine Straight Catheter Urine Culture - Final NO GROWTH AT 48 HOURS 10/31/17 08:50 Urine Straight Catheter Urine Culture - Preliminary NO GROWTH AT 24 HOURS 10/31/17 07:40 Venous blood - Right Hand Blood Culture - Preliminary Specimen has been received and culture in progress. No Growth to date. 10/31/17 07:40 Venous blood - Right Hand Blood Culture - Preliminary NO GROWTH AT 48 HOURS 10/31/17 07:30 Venous blood - Left Hand Blood Culture - Preliminary Specimen has been received and culture in progress. No Growth to date. 10/31/17 07:30 Venous blood - Left Hand Blood Culture - Preliminary NO GROWTH AT 48 HOURS Laboratory Tests 10/31/17 10/31/17 10/31/17 07:40 07:40 07:40 WBC 12.3 H MCV 110.0 H Neutrophils % Neutrophils % (Manual) 90 H BUN Creatinine 1.12 H Lactic Acid Magnesium Iron TIBC Ferritin Direct Bilirubin AST 2072 H ALT 3024 H Alkaline Phosphatase Troponin I B-Natriuretic Peptide 2264.7 H 10/31/17 10/31/17 10/31/17 07:40 07:40 10:24 WBC MCV Neutrophils % Neutrophils % (Manual) BUN Creatinine Lactic Acid 3.5 H Magnesium Iron TIBC Ferritin Direct Bilirubin AST ALT Alkaline Phosphatase Troponin I 0.117 H 0.145 H B-Natriuretic Peptide 10/31/17 11/01/17 11/01/17 13:35 03:38 03:38 WBC MCV Neutrophils % 89.4 H Neutrophils % (Manual) BUN 32 H Creatinine 1.27 H Lactic Acid Magnesium Iron TIBC Ferritin Direct Bilirubin AST ALT Alkaline Phosphatase Troponin I 0.187 H B-Natriuretic Peptide 11/01/17 11/02/17 11/02/17 03:38 04:24 04:24 WBC MCV Neutrophils % Neutrophils % (Manual) BUN Creatinine Lactic Acid Magnesium 1.8 Iron 98 TIBC 348 Ferritin Direct Bilirubin 0.7 H 0.7 H AST 2485 H 745 H ALT 2553 H 1820 H Alkaline Phosphatase Troponin I B-Natriuretic Peptide 11/02/17 11/03/17 04:24 03:46 WBC MCV Neutrophils % Neutrophils % (Manual) BUN Creatinine Lactic Acid Magnesium Iron TIBC Ferritin 1826.62 H Direct Bilirubin AST 305 H ALT 1300 H Alkaline Phosphatase 104 Troponin I B-Natriuretic Peptide EKG Reviewed by me: Yes (Tele - SR in 70's) Phys Exam - Physical Examination Constitutional: NAD alert, responsive HEENT: PERRLA, moist MMs, sclera anicteric, oral pharynx no lesions Neck: no nodes, no JVD, supple, full ROM diminished in bases Respiratory: no rales, no rhonchi, clear to auscultation bilateral S1, S2 Cardiovascular: RRR, no significant murmur, no rub, gallop Gastrointestinal: soft, non-tender, no distention, positive bowel sounds Musculoskeletal: no edema, pulses present Neurological: non-focal, normal sensation, moves all 4 limbs Psychiatric: normal affect, A&O x 3 Skin: no rash, normal turgor, cap refill <2 seconds Dx/Plan (1) Hypotension Status: Acute Comment: Iatrogenic, decrease Cardizem 30mg q6h, IVF NS 100ml/h (2) CRICKET (acute kidney injury) Code(s): N17.9 - ACUTE KIDNEY FAILURE, UNSPECIFIED Status: Acute Comment: Continue IVF's, avoid nephrotoxic meds and minimize contrast exposure, repeat creat in am (3) Acute CHF (congestive heart failure) Code(s): I50.9 - HEART FAILURE, UNSPECIFIED Status: Acute Qualifiers: Heart failure type: unspecified Qualified Code(s): I50.9 - Heart failure, unspecified Comment: D/C Lasix due to CRICKET and hypotension, monitor I/O's, daily weight, diastolic dysfunction noted on most recent echo 10/21/17, EF 55-60%, recheck Echo with attention to RV and Tricuspid excursion as concern for pulmonary HTN (4) Acute and chronic respiratory failure with hypoxia Code(s): J96.21 - ACUTE AND CHRONIC RESPIRATORY FAILURE WITH HYPOXIA Status: Acute Comment: Improved oxygenation and off initial BiPAP, VM with weaning as clinically tolerated, chronic O2 supplementation at home (5) Shock liver Code(s): K72.00 - ACUTE AND SUBACUTE HEPATIC FAILURE WITHOUT COMA Status: Acute Comment: Likely due to CHF, abd sono showed no obstruction, Hepatic doppler negative, improving LFT trend (6) CKD (chronic kidney disease), stage III Code(s): N18.3 - CHRONIC KIDNEY DISEASE, STAGE 3 (MODERATE) Status: Chronic Comment: Unclear baseline renal status, avoid nephrotoxic meds and contrast media, serial monitoring (7) Pulmonary fibrosis Code(s): J84.10 - PULMONARY FIBROSIS, UNSPECIFIED Status: Chronic Comment: Continue pulmonary supportive mgmt, continue Anoro Ellipta, Prednisone (8) SVT (supraventricular tachycardia) Code(s): I47.1 - SUPRAVENTRICULAR TACHYCARDIA Status: Acute Comment: Likely due to co-morbid conditions, Cardizem 30mg po q6h - Plan plan discussed w/ family, continue antibiotics, PT/OT, pediatric social worker, respiratory therapy, DVT proph w/SCDs Stable overall -: Continue IVF's NS 100ml/h -: Decrease Levaquin 500mg daily -: PT for mobilization/ROM exercises -: AM lab: CMP, Mg++ * Likely home in 24-48h
--- NOTE | 2017-11-03 16:31 | PRG ---
DATE OF SERVICE: 11/03/2017 SUBJECTIVE: Ms. Bates says she is feeling a little bit better. Her p.o. intake is quite poor. I have asked the nurses to get her some vanilla Ensure to mix with ice cream to see if she will take th is, she has just been sipping on some water at the bedside. Her family is telling me that she has no t eaten for 3 days prior to admission. OBJECTIVE: VITAL SIGNS: She is afebrile, heart rate 74, respiratory 20, oximetry 95 on facemask, blood pressure 90/63. LUNGS: Remarkable for fine crackles at her bases. HEART: Regular rhythm, no S3. ABDOMEN: Soft and nontender. EXTREMITIES: Without clubbing, cyanosis, or edema. NEUROLOGIC: Nonfocal. LABORATORY DATA: Sodium 138, potassium 3.4, chloride 94, bicarbonate 33, BUN 43, creatinine 1.57 up from 1.27. Her liver enzymes: AST is down from 2485 to 305, ALT is down from 2553 to 1300. Bilirub in is normal. Albumin is 3.1. IMPRESSION: 1. Pulmonary fibrosis. 2. Rheumatoid arthritis. 3. Chronic obstructive pulmonary disease. 4. Hepatic enzymitis that is improving. With her rise in her creatinine, her furosemide has been put hold. Continue current care. She feels the nebulizer treatments seem to be helping.
[2017-11-03] MEDS: Enoxaparin Sodium 30 MG/0.3 ML SYRINGE SC SCH (21:21)
[2017-11-04 06:00] LABS: ALT (SGPT) 944 U/L (8-55); AST (SGOT) 144 U/L (5-34); Albumin 2.8 g/dL (3.4-4.8); Alkaline Phosphatase 88 U/L (40-150); Anion Gap 14 mmol/L (10-20); BUN (Urea Nitrogen) 39 mg/dL (9.8-20.1); Calc. Creatinine Clearance 36 mL/min (70-130); Calcium 8.1 mg/dL (7.8-10.44); Carbon Dioxide 29 mmol/L (23-31); Chloride 99 mmol/L (98-107); Estimated GFR-MDRD 46; Globulin 2.7 g/dL (2.4-3.5); Glucose 128 mg/dL (83-110); Magnesium 1.8 mg/dL (1.6-2.6); Potassium 3.5 mmol/L (3.5-5.1); Protein, Total 5.5 g/dL (6.0-8.3); Sodium 138 mmol/L (136-145)
[2017-11-04] MEDS: predniSONE 20 MG TAB PO SCH (07:49)
[2017-11-04] MEDS: Aspirin 81 mg Enteric Coated Tablet PO SCH (07:49)
--- NOTE | 2017-11-04 11:06 | PRG ---
DATE OF SERVICE: 11/04/2017 SUBJECTIVE: The patient is feeling well today from a GI standpoint. OBJECTIVE: VITAL SIGNS: Temperature 97.3, pulse 70, respiratory rate 16, blood pressure 93/53. CHEST: Clear. CARDIOVASCULAR: Regular rate and rhythm. ABDOMEN: Benign. LABORATORY DATA: Shows liver function tests to be progressively improving with the AST of 144 and AL T of 944. Patient had an echocardiogram which showed severe elevated pulmonary artery pressures, sev erely enlarged right ventricular cavity. ASSESSMENT: 1. Abnormal liver function tests, probably secondary to hepatic congestion. 2. Hepatic congestion secondary to right heart abnormalities. RECOMMENDATIONS/DISCUSSION: 1. The patient seems to be improving, would maybe check her LFTs as an outpatient. 2. We will sign off.
[2017-11-04 15:21] LABS: Smooth Muscle Total ABS 5 Units (0-19)
--- NOTE | 2017-11-04 16:12 | PDOC.PN ---
- Subjective Encounter Start Date: 11/04/17 Encounter Start Time: 16:00 Subjective: f/u for acute/chronic hypoxic resp failure on VM. Still weak and BP low -: after starting Cardizem for NSVT. Feels tired and weak but no N/V/CP -: Appetite decreased. - Objective Resuscitation Status: Resuscitation Status FULL:Full Resuscitation MAR Reviewed: Yes Vital Signs & Weight: Vital Signs (12 hours) Temp Pulse Resp BP Pulse Ox 11/04/17 13:21 68 17 93 L 11/04/17 12:30 97.6 F 68 18 79/47 L 94 L 11/04/17 08:00 97.3 F L 70 16 91 L 11/04/17 07:55 97.3 F L 70 16 93/53 L 91 L 11/04/17 07:10 90 L 11/04/17 07:08 69 17 90 L Weight Weight 123 lb 9.6 oz I&O: 11/03/17 11/04/17 11/05/17 06:59 06:59 06:59 Intake Total 990 1725 Output Total 1725 700 Balance -735 1025 Result Diagrams: 11/01/17 03:38 11/04/17 05:02 Additional Labs: Microbiology 10/31/17 08:50 Urine Straight Catheter Urine Culture - Final NO GROWTH AT 48 HOURS 10/31/17 08:50 Urine Straight Catheter Urine Culture - Preliminary NO GROWTH AT 24 HOURS 10/31/17 07:40 Venous blood - Right Hand Blood Culture - Preliminary Specimen has been received and culture in progress. No Growth to date. 10/31/17 07:40 Venous blood - Right Hand Blood Culture - Preliminary NO GROWTH AT 48 HOURS 10/31/17 07:30 Venous blood - Left Hand Blood Culture - Preliminary Specimen has been received and culture in progress. No Growth to date. 10/31/17 07:30 Venous blood - Left Hand Blood Culture - Preliminary NO GROWTH AT 48 HOURS Laboratory Tests 10/31/17 10/31/17 10/31/17 07:40 07:40 07:40 WBC 12.3 H MCV 110.0 H Neutrophils % Neutrophils % (Manual) 90 H BUN Creatinine 1.12 H Lactic Acid Magnesium Iron TIBC Ferritin Direct Bilirubin AST 2072 H ALT 3024 H Alkaline Phosphatase Troponin I B-Natriuretic Peptide 2264.7 H 10/31/17 10/31/17 10/31/17 07:40 07:40 10:24 WBC MCV Neutrophils % Neutrophils % (Manual) BUN Creatinine Lactic Acid 3.5 H Magnesium Iron TIBC Ferritin Direct Bilirubin AST ALT Alkaline Phosphatase Troponin I 0.117 H 0.145 H B-Natriuretic Peptide 10/31/17 11/01/17 11/01/17 13:35 03:38 03:38 WBC MCV Neutrophils % 89.4 H Neutrophils % (Manual) BUN 32 H Creatinine 1.27 H Lactic Acid Magnesium Iron TIBC Ferritin Direct Bilirubin AST ALT Alkaline Phosphatase Troponin I 0.187 H B-Natriuretic Peptide 11/01/17 11/02/17 11/02/17 03:38 04:24 04:24 WBC MCV Neutrophils % Neutrophils % (Manual) BUN Creatinine Lactic Acid Magnesium 1.8 Iron 98 TIBC 348 Ferritin Direct Bilirubin 0.7 H 0.7 H AST 2485 H 745 H ALT 2553 H 1820 H Alkaline Phosphatase Troponin I B-Natriuretic Peptide 11/02/17 11/03/17 11/04/17 04:24 03:46 05:02 WBC MCV Neutrophils % Neutrophils % (Manual) BUN Creatinine Lactic Acid Magnesium 1.8 Iron TIBC Ferritin 1826.62 H Direct Bilirubin AST 305 H 144 H ALT 1300 H 944 H Alkaline Phosphatase 104 Troponin I B-Natriuretic Peptide Radiology Reviewed by me: Yes (2D echo - EF 65%, RVH, severe TR, PA press 70mmHg ) EKG Reviewed by me: Yes (Tele - SR in 60's) Phys Exam - Physical Examination Constitutional: NAD HEENT: PERRLA, moist MMs, sclera anicteric, oral pharynx no lesions Neck: no nodes, no JVD, supple, full ROM diminished in bases Respiratory: no wheezing, no rales, no rhonchi S1, S2 Cardiovascular: RRR, no significant murmur, no rub, gallop Gastrointestinal: soft, non-tender, no distention, positive bowel sounds Musculoskeletal: no edema, pulses present Neurological: non-focal, normal sensation, moves all 4 limbs Psychiatric: normal affect, A&O x 3 Skin: no rash, normal turgor, cap refill <2 seconds Dx/Plan (1) Hypotension Status: Acute Comment: Iatrogenic, d/c Cardizem (2) CRICKET (acute kidney injury) Code(s): N17.9 - ACUTE KIDNEY FAILURE, UNSPECIFIED Status: Acute Comment: Improving, avoid nephrotoxic meds and minimize contrast exposure, repeat creat in am (3) Acute CHF (congestive heart failure) Code(s): I50.9 - HEART FAILURE, UNSPECIFIED Status: Acute Qualifiers: Heart failure type: unspecified Qualified Code(s): I50.9 - Heart failure, unspecified Comment: D/C Lasix due to CRICKET and hypotension, monitor I/O's, daily weight, diastolic dysfunction noted on most recent echo 10/21/17, EF 55-60%, repeat echo with EF 65%, RVH, PA press 70mmHg (4) Acute and chronic respiratory failure with hypoxia Code(s): J96.21 - ACUTE AND CHRONIC RESPIRATORY FAILURE WITH HYPOXIA Status: Acute Comment: Improved oxygenation and off initial BiPAP, VM with weaning as clinically tolerated, chronic O2 supplementation at home (5) Shock liver Code(s): K72.00 - ACUTE AND SUBACUTE HEPATIC FAILURE WITHOUT COMA Status: Acute Comment: Likely due to CHF, abd sono showed no obstruction, Hepatic doppler negative, improving LFT trend, outpt monitoring (6) CKD (chronic kidney disease), stage III Code(s): N18.3 - CHRONIC KIDNEY DISEASE, STAGE 3 (MODERATE) Status: Chronic Comment: Unclear baseline renal status, avoid nephrotoxic meds and contrast media, serial monitoring (7) Pulmonary fibrosis Code(s): J84.10 - PULMONARY FIBROSIS, UNSPECIFIED Status: Chronic Comment: Continue pulmonary supportive mgmt, continue Anoro Ellipta, Prednisone (8) SVT (supraventricular tachycardia) Code(s): I47.1 - SUPRAVENTRICULAR TACHYCARDIA Status: Acute Comment: Likely due to co-morbid conditions, resolved, d/c Cardizem due symptomatic hypotension - Plan plan discussed w/ family, PT/OT, social welfare administrator, out of bed/ambulate, DVT proph w/SCDs Stable overall -: D/C Cardizem due to symptomatic hypotension -: OOB with PT -: Likely will benefit with HH/PT -: [facility] * AM lab: CMP * Likely home in am with HH/PT
[2017-11-04] MEDS ORDERED: Sodium Chloride 0.9% 500 ML IV SCH (17:15)
[2017-11-04] MEDS ORDERED: Potassium Chloride 20 MEQ TAB PO SCH (17:30)
[2017-11-04 18:28] LABS: INR-International Normal Ratio 1.3
--- NOTE | 2017-11-04 19:14 | PRG ---
DATE OF SERVICE: 11/04/2017 SERVICE: Pulmonary Medicine. INTERVAL HISTORY: The patient is doing fine from a respiratory standpoint. She denies any current chest pain, nausea, vomiting, fevers or chills. Otherwise, there has been no interval change to her condition. Her liver injury continues to improve. She has no specific complaints other than weakness. She got to the side of the bed and stood up yesterday, but had significant dizziness. As such, she has not been mobile today. PHYSICAL EXAMINATION: VITAL SIGNS: Afebrile, pulse 70, blood pressure 194/53, respirations 16, and saturation 96% on 35% FiO2. GENERAL: The patient is awake and alert, in no apparent distress. LUNGS: Decent air entry with crackles present. HEART: Normal rate, regular. ABDOMEN: Soft, nontender, nondistended. Bowel sounds are positive. MUSCULOSKELETAL: No cyanosis or clubbing. There is no pitting in the bilateral lower extremities. NEUROLOGIC: Grossly nonfocal. LABORATORY DATA: Creatinine 1.1 and down trending. Basic metabolic profile is otherwise unremarkable. Potassium is 3.5. AST and ALT continue to trend downward. Total bilirubin falls within the normal limits. MINE screen is unremarkable. Hepatitis serologies are all nonreactive. Blood cultures x2 and urine culture are negative to date. IMAGING: Limited echo of the right ventricle is consistent with right ventricular dysfunction with paradoxical septal motion. There is severely enlarged right ventricle even though we recently diuresed her significantly. There is elevated systolic pulmonary pressures, which are estimated at 70 mmHg. There is moderate to severe tricuspid regurgitation. The TAPSE was once again. ASSESSMENT: 1. Acute on chronic hypoxic respiratory failure. 2. Pulmonary fibrosis with acute exacerbation. 3. Rheumatoid arthritis. 4. Chronic obstructive pulmonary disease with acute exacerbation. 5. Cor pulmonale with acute right ventricular failure. 6. Pulmonary hypertension, likely severe. 7. Shock liver secondary to passive congestion, resolved. PLAN: I will continue diuresing the patient gently. Her INR will be repeated as well as a basic metabolic profile in the morning. Potassium will once again be replaced. Her creatinine is improving, we will continue to diurese her. If her creat bumps, we need to consider inotropic agent. MTDD
[2017-11-04] MEDS: Enoxaparin Sodium 30 MG/0.3 ML SYRINGE SC SCH (20:41)
[2017-11-04] MEDS: Lorazepam 1 MG TAB PO SCH (20:42)
[2017-11-05 04:42] LABS: ALT (SGPT) 755 U/L (8-55); AST (SGOT) 83 U/L (5-34); Alkaline Phosphatase 83 U/L (40-150); Anion Gap 9 mmol/L (10-20); BUN (Urea Nitrogen) 38 mg/dL (9.8-20.1); Bilirubin, Total 0.9 mg/dL (0.2-1.2); Calc. Creatinine Clearance 41 mL/min (70-130); Calcium 8.3 mg/dL (7.8-10.44); Carbon Dioxide 32 mmol/L (23-31); Chloride 102 mmol/L (98-107); Estimated GFR-MDRD 54; Globulin 2.5 g/dL (2.4-3.5); Glucose 160 mg/dL (83-110); Potassium 4.4 mmol/L (3.5-5.1); Protein, Total 5.5 g/dL (6.0-8.3); Sodium 139 mmol/L (136-145)
[2017-11-05] MEDS: Furosemide 40 MG TAB PO SCH (07:26)
[2017-11-05] MEDS: Aspirin 81 mg Enteric Coated Tablet PO SCH (07:26)
[2017-11-05] MEDS: predniSONE 20 MG TAB PO SCH (07:26)
[2017-11-05 13:17] LABS: Alpha-1-Antitrypsin 126 mg/dL (90-200)
--- NOTE | 2017-11-05 16:54 | PRG ---
DATE OF SERVICE: 11/05/2017 SERVICE: Pulmonary Medicine. INTERVAL HISTORY: The patient feels like she is breathing much better. That being said, she has ess entially been in bed for the better part of 5 days. She denies any chest pain, nausea, vomiting, fev ers or chills. PHYSICAL EXAMINATION: VITAL SIGNS: Afebrile, pulse 105, blood pressure 102/52, respirations 14, saturation 96% on Venturi mask. HEENT: Normocephalic, atraumatic. Sclerae are white, conjunctivae pink. Oral mucosa is moist witho ut lesions. LUNGS: Decent air entry. Crackles are present. No prolonged expiratory phase is evident. HEART: Normal rate, regular. ABDOMEN: Soft, nontender, nondistended. Bowel sounds are positive. MUSCULOSKELETAL: No cyanosis or clubbing. There is no pitting in the bilateral lower extremities. NEUROLOGIC: Grossly nonfocal. LABORATORY DATA: Creatinine 0.99, BUN 38. Basic metabolic profile is otherwise unremarkable. AST a nd ALT continue to improve. ASSESSMENT: 1. Acute on chronic hypoxic respiratory failure. 2. Pulmonary fibrosis with acute exacerbation, improving. 3. Rheumatoid arthritis. 4. Pulmonary hypertension, severe. 5. Cor pulmonale with acute right ventricular heart strain. 6. Shock liver secondary to passive congestion. 7. Chronic obstructive pulmonary disease, possible. DISCUSSION AND PLAN: We will continue to gently diurese the patient to euvolemia. From my perspecti ve, the patient is essentially stable for transition out of the hospital. Her respiratory status is essentially back to baseline. That being said, she remains quite debilitated. If physical therapy a nd Cardiology are okay with her transitioning home, we can likely do that today.
--- NOTE | 2017-11-05 18:35 | PDOC.PN ---
- Subjective Encounter Start Date: 11/05/17 Encounter Start Time: 18:32 patient breathing at baseline, however daughter states patient still has difficulty transferring to wheelchair without sig dyspnea which she was able to do before - Objective Resuscitation Status: Resuscitation Status FULL:Full Resuscitation MAR Reviewed: Yes Vital Signs & Weight: Vital Signs (12 hours) Temp Pulse Pulse Pulse Resp BP BP 11/05/17 18:22 86 20 11/05/17 15:39 97.9 F 105 H 14 11/05/17 12:07 87 18 11/05/17 11:52 97.7 F 79 20 11/05/17 10:45 84 84 93/57 L 101/62 11/05/17 08:00 98.8 F 78 14 11/05/17 07:45 98.8 F 78 14 11/05/17 07:39 79 22 H BP BP Pulse Ox Pulse Ox Pulse Ox 11/05/17 18:22 95 11/05/17 15:39 102/52 L 96 11/05/17 12:07 11/05/17 11:52 93/57 L 93 L 11/05/17 10:45 90 L 92 L 11/05/17 08:00 96 11/05/17 07:45 95/65 96 11/05/17 07:39 Weight Weight 123 lb 9.6 oz I&O: 11/04/17 11/05/17 11/06/17 06:59 06:59 06:59 Intake Total 1725 650 650 Output Total 700 350 900 Balance 1025 300 -250 Result Diagrams: 11/01/17 03:38 11/05/17 03:51 Phys Exam - Physical Examination Constitutional: NAD HEENT: moist MMs Neck: no nodes, no JVD very diminished at the bases Cardiovascular: RRR, no significant murmur, no rub Gastrointestinal: soft, non-tender, no distention Musculoskeletal: no edema, pulses present Dx/Plan (1) Acute CHF (congestive heart failure) Code(s): I50.9 - HEART FAILURE, UNSPECIFIED Status: Acute Qualifiers: Heart failure type: unspecified Qualified Code(s): I50.9 - Heart failure, unspecified Comment: D/C Lasix due to CRICKET and hypotension, monitor I/O's, daily weight, diastolic dysfunction noted on most recent echo 10/21/17, EF 55-60%, repeat echo with EF 65%, RVH, PA press 70mmHg (2) Acute and chronic respiratory failure with hypoxia Code(s): J96.21 - ACUTE AND CHRONIC RESPIRATORY FAILURE WITH HYPOXIA Status: Acute Comment: Improved oxygenation and off initial BiPAP, VM with weaning as clinically tolerated, chronic O2 supplementation at home she is baseline on 10-11 L at home (3) SVT (supraventricular tachycardia) Code(s): I47.1 - SUPRAVENTRICULAR TACHYCARDIA Status: Acute Comment: Likely due to co-morbid conditions, resolved, d/c Cardizem due symptomatic hypotension. awaiting cardio to clear (4) Pulmonary fibrosis Code(s): J84.10 - PULMONARY FIBROSIS, UNSPECIFIED Status: Chronic Comment: Continue pulmonary supportive mgmt, continue Anoro Ellipta, d/c prednisone as of 11/05/17 - Plan cont current plan of care, respiratory therapy * . finished prednisone on 11/05/17 on baseline oxygen -continue gentle lasix if tolerated. -awaiting cardio to clear, if patient is stable by tomorrow, i believe she can be discharged. she has baseline oxygen needs of 10-11 L with occasional need for ventimask.
[2017-11-05] MEDS: Lorazepam 1 MG TAB PO SCH (20:38)
[2017-11-05] MEDS: Enoxaparin Sodium 30 MG/0.3 ML SYRINGE SC SCH (20:39)
[2017-11-06 04:33] LABS: Anion Gap 12 mmol/L (10-20); BUN (Urea Nitrogen) 41 mg/dL (9.8-20.1); Calc. Creatinine Clearance 38 mL/min (70-130); Calcium 8.4 mg/dL (7.8-10.44); Carbon Dioxide 31 mmol/L (23-31); Chloride 100 mmol/L (98-107); Estimated GFR-MDRD 51; Glucose 119 mg/dL (83-110); Potassium 3.3 mmol/L (3.5-5.1); Sodium 140 mmol/L (136-145)
[2017-11-06 04:39] LABS: Band 7 % (5-11); MDiff Complete? YES; Mean Corpuscular HGB CONC 32.6 g/dL (32.0-36.0); Mean Corpuscular Hemoglobin 33.9 pg (27.0-31.0); Mean Platelet Volume 8.5 fL (7.4-10.4); Monocytes 5 % (0-10); Neutrophil 88 % (42-75); PLT Morphology Comment Appears Adequate; Platelet Count 121 thou/uL (130-400); RBC Distribution Width 16.8 % (11.5-14.5); Red Blood Cell (RBC) Count 3.83 mill/uL (4.20-5.40); White Blood Cell (WBC) Count 12.5 thou/uL (4.8-10.8)
[2017-11-06] MEDS: Aspirin 81 mg Enteric Coated Tablet PO SCH (09:07)
[2017-11-06] MEDS: Furosemide 40 MG TAB PO SCH (09:07)
[2017-11-06] MEDS ORDERED: Potassium Chloride 20 MEQ TAB PO SCH (11:15)
[2017-11-06] MEDS: Ondansetron ODT 4 MG TAB PO PRN (12:20)
[2017-11-06] MEDS ORDERED: Furosemide 40 MG/4 ML VIAL SLOW IVP SCH (13:45)
--- NOTE | 2017-11-06 14:00 | PRG ---
DATE OF SERVICE: 11/06/2017 SERVICE: Pulmonary Medicine. INTERVAL HISTORY: The patient is actually doing a little bit better. Her strength is improved. Her appetite is better. She denies any current chest pain, nausea or vomiting. Her breathing is comfor table. Her saturations remained around 88%-92% on 12 liters via Ventimask, which is putting out 35% FiO2. PHYSICAL EXAMINATION: HEENT: Normocephalic, atraumatic. Sclerae are white, conjunctivae pink. Oral mucosa is moist witho ut lesions. LUNGS: Decent air entry. There is no prolonged expiratory phase. Crackles are present. No wheezin g or rhonchi are present. HEART: Normal rate and regular. ABDOMEN: Soft, nontender, and nondistended. Bowel sounds are positive. MUSCULOSKELETAL: No cyanosis or clubbing. There is no pitting in the bilateral lower extremities. NEUROLOGIC: Grossly nonfocal. LABORATORY DATA: WBC 12.5, hemoglobin 13.0, platelets 121,000 and down trending. Basic metabolic pr ofile is essentially unremarkable except for potassium of 3.3. Serologies remain negative including antismooth muscle antibody, MINE screen. Blood cultures x2 and urine culture negative to date. ASSESSMENT: 1. Acute on chronic hypoxic respiratory failure. 2. Pulmonary fibrosis with acute exacerbation. 3. Rheumatoid arthritis. 4. Pulmonary hypertension, severe. 5. Cor pulmonale with acute right ventricular heart strain. 6. Shock liver, improving. 7. Chronic obstructive pulmonary disease, possible. DISCUSSION AND PLAN: We will replace the potassium. We will continue to diurese down to euvolemia a nd inotropic agent will be considered today. I would like to discuss that with Dr. Burns. She can re main in the [facility] for the time being.
--- NOTE | 2017-11-06 14:18 | PDOC.PN ---
- Subjective Encounter Start Date: 11/06/17 Encounter Start Time: 14:17 patient seen and examined. able to transfer out of bed into wheelchair. back to baseline according to patient and daughter. +SOB but not worse than baseline. no nausea or vomiting - Objective Resuscitation Status: Resuscitation Status FULL:Full Resuscitation MAR Reviewed: Yes Vital Signs & Weight: Vital Signs (12 hours) Temp Pulse Pulse Pulse Resp BP BP 11/06/17 12:38 86 16 11/06/17 11:47 96.8 F L 104 H 25 H 11/06/17 10:01 84 20 11/06/17 08:41 91 88 118/69 115/63 11/06/17 07:59 97.7 F 76 17 11/06/17 07:55 97.7 F 92 16 11/06/17 07:28 11/06/17 07:26 92 16 11/06/17 03:54 97.4 F L 84 17 BP BP Pulse Ox Pulse Ox Pulse Ox Pulse Ox 11/06/17 12:38 94 L 11/06/17 11:47 129/63 11/06/17 10:01 118/70 93 L 11/06/17 08:41 86 L 79 L 89 L 11/06/17 07:59 110/75 93 L 11/06/17 07:55 87 L 11/06/17 07:28 94 L 11/06/17 07:26 95 11/06/17 03:54 108/65 92 L Weight Weight 124 lb 11.2 oz I&O: 11/05/17 11/06/17 11/07/17 06:59 06:59 06:59 Intake Total 650 750 120 Output Total 350 1200 Balance 300 -450 120 Result Diagrams: 11/06/17 04:05 11/06/17 04:05 Phys Exam - Physical Examination HEENT: moist MMs, sclera anicteric Neck: no nodes, no JVD, supple diminished breath sounds at bases but moving air Cardiovascular: RRR, no significant murmur, no rub Gastrointestinal: soft, non-tender, no distention 2+ edema bilateral LE Dx/Plan (1) Acute CHF (congestive heart failure) Code(s): I50.9 - HEART FAILURE, UNSPECIFIED Status: Acute Qualifiers: Heart failure type: right-sided Qualified Code(s): I50.811 - Acute right heart failure Comment: monitor I/O's, daily weight, diastolic dysfunction noted on most recent echo 10/21/17, EF 55-60%, repeat echo with EF 65%, RVH, PA press 70mmHg had another echo done on 11/03/17 with similar results. -on 40 mg po lasix daily at this time (2) Acute and chronic respiratory failure with hypoxia Code(s): J96.21 - ACUTE AND CHRONIC RESPIRATORY FAILURE WITH HYPOXIA Status: Acute Comment: Improved oxygenation and off initial BiPAP, VM with weaning as clinically tolerated, chronic O2 supplementation at home she is baseline on 10-11 L at home (3) SVT (supraventricular tachycardia) Code(s): I47.1 - SUPRAVENTRICULAR TACHYCARDIA Status: Acute Comment: Likely due to co-morbid conditions, resolved, d/c Cardizem due symptomatic hypotension. cardio consult to EP. unfortunately EP could not see today. will see tomorrow to see if patient candidate for ablation or medical therapy. (4) Pulmonary fibrosis Code(s): J84.10 - PULMONARY FIBROSIS, UNSPECIFIED Status: Chronic Comment: Continue pulmonary supportive mgmt, continue Anoro Ellipta, d/c prednisone as of 11/05/17 . patient on baseline Dafluzicort at home. - Plan cont current plan of care * . -continue 10-11 L HF NC. stable from pulmonary standpoint. prednisone discontinued on 11/05/17, -can d/c with low dose lasix daily. this is terminal condition and unfortunately will not get much better from a pulm standpoint hypokalemia: will replete K today. NSVT: awaiting EP eval. hopefully d/c soon afterwards. EP to see tomorrow hopefully.
[2017-11-06] MEDS: Enoxaparin Sodium 30 MG/0.3 ML SYRINGE SC SCH (20:46)
[2017-11-06] MEDS: Lorazepam 1 MG TAB PO SCH (20:46)
[2017-11-07 04:38] LABS: Anion Gap 14 mmol/L (10-20); BUN (Urea Nitrogen) 41 mg/dL (9.8-20.1); Calc. Creatinine Clearance 33 mL/min (70-130); Calcium 8.9 mg/dL (7.8-10.44); Carbon Dioxide 33 mmol/L (23-31); Chloride 96 mmol/L (98-107); Estimated GFR-MDRD 43; Glucose 106 mg/dL (83-110); Potassium 3.9 mmol/L (3.5-5.1); Sodium 139 mmol/L (136-145)
[2017-11-07] MEDS ORDERED: Potassium Chloride 20 MEQ TAB PO SCH (09:15)
[2017-11-07] MEDS ORDERED: predniSONE 20 MG TAB PO SCH (09:15)
--- NOTE | 2017-11-07 09:23 | PDOC.PN ---
- Subjective Encounter Start Date: 11/07/17 Encounter Start Time: 09:21 Subjective: alert, no sob etc - Objective Resuscitation Status: Resuscitation Status FULL:Full Resuscitation MAR Reviewed: Yes Vital Signs & Weight: Vital Signs (12 hours) Temp Pulse Resp BP Pulse Ox 11/07/17 07:32 95 11/07/17 07:30 83 16 95 11/07/17 07:29 97.7 F 70 20 95 11/07/17 07:00 98.1 F 98 26 H 106/77 92 L 11/07/17 04:00 97.7 F 70 20 92/57 L 92 L 11/07/17 01:51 92 L 11/07/17 00:00 101 H 20 88/55 L 88 L 11/06/17 23:20 88 18 92 L Weight Weight 122 lb 6.4 oz I&O: 11/06/17 11/07/17 11/08/17 06:59 06:59 06:59 Intake Total 750 814 Output Total 1200 2250 Balance -450 -1436 Result Diagrams: 11/06/17 04:05 11/07/17 03:38 Phys Exam - Physical Examination Neck: no JVD diffuse fine rales Cardiovascular: no significant murmur, irregular Gastrointestinal: soft, positive bowel sounds Musculoskeletal: no edema Dx/Plan (1) Coagulopathy Status: Acute Comment: due to shock liver (2) CRICKET (acute kidney injury) Code(s): N17.9 - ACUTE KIDNEY FAILURE, UNSPECIFIED Status: Acute Comment: Improving, avoid nephrotoxic meds and minimize contrast exposure, repeat creat in am (3) Acute and chronic respiratory failure with hypoxia Code(s): J96.21 - ACUTE AND CHRONIC RESPIRATORY FAILURE WITH HYPOXIA Status: Acute Comment: Improved oxygenation and off initial BiPAP, VM with weaning as clinically tolerated, chronic O2 supplementation at home she is baseline on 10-11 L at home (4) Hypotension Status: Acute Qualifiers: Hypotension type: unspecified hypotension type Qualified Code(s): I95.9 - Hypotension, unspecified Comment: Iatrogenic, d/c Cardizem (5) SVT (supraventricular tachycardia) Code(s): I47.1 - SUPRAVENTRICULAR TACHYCARDIA Status: Acute Comment: Likely due to co-morbid conditions, resolved, d/c Cardizem due symptomatic hypotension. cardio consult to EP. unfortunately EP could not see today. will see tomorrow to see if patient candidate for ablation or medical therapy. (6) Shock liver Code(s): K72.00 - ACUTE AND SUBACUTE HEPATIC FAILURE WITHOUT COMA Status: Acute Comment: Likely due to CHF, abd sono showed no obstruction, Hepatic doppler negative, improving LFT trend, outpt monitoring (7) Pulmonary fibrosis Code(s): J84.10 - PULMONARY FIBROSIS, UNSPECIFIED Status: Chronic Comment: Continue pulmonary supportive mgmt, continue Anoro Ellipta, d/c prednisone as of 11/05/17 . patient on baseline Dafluzicort at home. - Plan EP to see today re SVT -: cont resp tx , O2 -: monitor PT/INR, transaminasis, creatinine * .
--- NOTE | 2017-11-07 09:34 | PRG ---
DATE OF SERVICE: 11/07/2017 SERVICE: Pulmonary Medicine INTERVAL HISTORY: The patient is doing fine from a cardiovascular and respiratory standpoint. She i s breathing very comfortably. Her strength is improving day by day. She denies any current fevers, chills, nausea or vomiting. Her home steroid is over $8000. [place], [place] do [place] it [place] and so it is extremely expensive. We need to convert her over to prednisone when samuel phipps gets out of here. PHYSICAL EXAMINATION: VITAL SIGNS: Afebrile, pulse 83, blood pressure 106/77, respirations 20, saturation 95% on a Ventima sk delivering 35% FiO2. GENERAL: The patient is awake and alert, in no apparent distress. LUNGS: Excellent air entry. The crackles are present bilaterally. No prolonged expiratory phase or wheezing is appreciated. HEART: Normal rate, regular. ABDOMEN: Soft, nontender, nondistended. Bowel sounds are positive. MUSCULOSKELETAL: No cyanosis or clubbing. No pitting in the bilateral lower extremities. NEUROLOGIC: Grossly nonfocal. LABORATORY DATA: Creatinine 1.22, BUN 41, anion gap 14, bicarbonate 33. Basic metabolic profile is otherwise unremarkable. Urine culture, blood culture x2 are unremarkable. ASSESSMENT: 1. Acute on chronic hypoxic respiratory failure. 2. Pulmonary fibrosis with acute exacerbation. 3. Rheumatoid arthritis. 4. Pulmonary hypertension, severe. 5. Cor pulmonale with acute right ventricular heart failure. 6. Shock liver, resolving. 7. Chronic obstructive pulmonary disease, possible. DISCUSSION AND PLAN: The patient will need to be discharged from the hospital on daily p.o. Lasix, a nd daily steroids. We should convert her off of her steroid on to prednisone. This will be delivere d at 20 mg on a daily basis for now and we will work to decreasing this in the outpatient setting. T he tachyarrhythmia is currently being worked up by Cardiology. In the outpatient setting, she will n eed to undergo a right heart catheterization with vaso dilatory testing in consideration for a pulmon kt vasodilator.
[2017-11-07] MEDS: Aspirin 81 mg Enteric Coated Tablet PO SCH (09:46)
[2017-11-07] MEDS: Furosemide 40 MG TAB PO SCH (09:46)
[2017-11-07] MEDS ORDERED: Digoxin 0.125 MG TAB PO SCH (14:00)
--- NOTE | 2017-11-07 18:25 | CON ---
DATE OF CONSULTATION: 11/07/2017 ELECTROPHYSIOLOGY CONSULTATION REASON FOR CONSULTATION: SVT. REFERRING PHYSICIAN: Jostin Childers M.D. HISTORY OF PRESENT ILLNESS: Ms. Bates is a 77-year-old female with a history of pulmonary fibrosis which is attributed to her rheumatoid arthritis. She has moved from [facility] to [place] and several weeks ago began to have dyspnea on exertion with associated panic attacks. She would also awaken at night gasping for air and having frequent PND episodes. She presented to the hospital for further ev aluation. She was found to have progressive respiratory failure and does use nonrebreather at this t guero. She has been having episodes of SVT, prompting Electrophysiology consultation. Ms. Bates is currently resting comfortably in bed. She does continue to endorse shortness of breat h, but denies any perceived heart racing, palpitations, chest pain, pressure, syncope or near syncopa l episodes. REVIEW OF SYSTEMS: Twelve-point review of systems was conducted and is negative except that listed a ubaldo in HPI. PAST MEDICAL HISTORY: 1. Rheumatoid arthritis. 2. Chronic obstructive pulmonary disease. 3. Gastroesophageal reflux disease. 4. Hypertension. 5. Pulmonary fibrosis. SURGICAL HISTORY: Appendectomy and cholecystectomy. HOME MEDICATIONS: Include, 1. Norvasc 5 mg q.a.m. 2. Aspirin 81 mg daily. 3. Lorazepam 2 mg at bedtime. 4. Omeprazole 10 mg p.o. daily. 5. Anoro-Ellipta. ALLERGIES: PENICILLIN, TRIMETHOPRIM, and SULFA. SOCIAL HISTORY: An [id number] history, but stopped 10 years ago. FAMILY HISTORY: Negative for coronary artery disease or sudden cardiac . PHYSICAL EXAMINATION: VITAL SIGNS: Include 97.8, heart rate 114, respirations 24, oxygen saturation 89% with Ventimask at 12 liters, and blood pressure is 101/51. GENERAL: This is a chronically ill appearing woman in bed in no apparent distress. She is alert and oriented. HEENT: Pupils are equal, round, reactive and accommodating to light. LUNGS: She presents with occasional crackles. Respirations are even and largely unlabored. Her hea rt rate is currently irregularly irregular without any significant murmurs, rubs or gallops and PMI i s nondisplaced. ABDOMEN: Soft and nontender without palpable masses and positive bowel sounds are noted throughout. EXTREMITIES: Warm and dry to touch without clubbing, cyanosis or edema. NEUROLOGIC: Grossly intact and nonfocal. Gait was not assessed. IMAGING DATA AND LABORATORY DATA: 1. Telemetry and EKG revealed largely normal sinus rhythm with controlled ventricular rates. Freque nt episodes of paroxysmal atrial fibrillation versus atrial flutter seen with ventricular rates rangi ng between 160-190 beats per minute. Longest duration 35 seconds. 2. WBC 12.5, hemoglobin and hematocrit are stable. BUN 41, creatinine 1.22, potassium 3.9. AST 83, ALT 755, and magnesium 1.8. 3. Echocardiogram on 11/03/2017 reveals ejection fraction 60%-65%. LV size is normal. Severely enl arged RV cavity. Severely elevated PAP. Systolic pressure estimated at 70 mmHg. IMPRESSION: 1. Paroxysmal atrial arrhythmias with RVR, asymptomatic. 2. Preserved LV systolic function. 3. Pulmonary fibrosis. 4. Rheumatoid arthritis. 5. Severely elevated pulmonary artery pressure and right ventricular enlargement. 6. Hypertension with carvedilol 3.125 mg. RECOMMENDATIONS: Long discussion was had with Ms. Bates and her daughter regarding her abnormal rh ythms. These do appear to be paroxysmal episodes of atrial fibrillation versus an atypical flutter w ith RVR. She is a poor candidate for ablation. Treatment options including monitoring, rate control , antiarrhythmic therapy, ultimately pacemaker implant with AV node ablation were all discussed inclu ding risks and benefits. At this point, recommendation would be for rate control as she is asymptoma tic with her arrhythmia. She has been hypotensive even on extremely low dose of beta bernarda therapy in the past. Therefore, we will start her on a low-dose digoxin of 0.125 mg daily, but she may also benefit from low dose diltiazem in addition to the digoxin if her blood pressure tolerates this. Gi cheyanne the severity of her pulmonary artery pressure elevation as well as her RV enlargement, I will jus t continue to see atrial arrhythmias and anticipate she had an increased burden. Thank you for allowing us to participate in the care of this patient.
[2017-11-07] MEDS: Lorazepam 1 MG TAB PO SCH (21:31)
[2017-11-07] MEDS: Enoxaparin Sodium 30 MG/0.3 ML SYRINGE SC SCH (21:31)
[2017-11-08 05:53] LABS: #Lymphocytes 0.9 thou/uL (1.20-3.40); #Monocytes 0.8 thou/uL (0.11-0.59); #Neutrophils 9.9 thou/uL (1.40-6.50); %Basophils 0.3 % (0.0-1.0); %Eosinophils 0.2 % (0.0-10.0); %Lymphocytes 7.7 % (21.0-51.0); %Monocytes 6.9 % (0.0-10.0); %Neutrophils 84.9 % (42.0-75.0); Hemoglobin 14.5 g/dL (12.0-16.0); Mean Corpuscular HGB CONC 31.5 g/dL (32.0-36.0); Mean Corpuscular Hemoglobin 32.9 pg (27.0-31.0); Mean Platelet Volume 9.2 fL (7.4-10.4); Platelet Count 122 thou/uL (130-400); RBC Distribution Width 17.3 % (11.5-14.5); Red Blood Cell (RBC) Count 4.41 mill/uL (4.20-5.40); White Blood Cell (WBC) Count 11.7 thou/uL (4.8-10.8)
[2017-11-08] MEDS: Aspirin 81 mg Enteric Coated Tablet PO SCH (07:59)
[2017-11-08] MEDS: Furosemide 40 MG TAB PO SCH (07:59)
[2017-11-08] MEDS ORDERED: predniSONE 20 MG TAB PO SCH (08:00)
[2017-11-08] MEDS ORDERED: Digoxin 0.125 MG TAB PO SCH (09:00)
--- NOTE | 2017-11-08 10:31 | PDOC.CTH ---
Cardiology Progress Note - Objective Vital Signs Temp Pulse Resp BP BP Pulse Ox 11/08/17 07:59 104 H 11/08/17 07:33 97.5 F L 89 17 108/73 90 L 11/08/17 07:21 94 L 11/08/17 07:20 69 19 94 L 11/08/17 07:05 96.8 F L 83 22 H 93 L 11/08/17 04:00 96.8 F L 83 22 H 105/63 95 11/08/17 00:48 100 20 94 L 11/08/17 00:00 97.4 F L 82 24 H 87/55 L 90 L Weight 121 lb 6.4 oz 11/07/17 11/08/17 11/09/17 06:59 06:59 06:59 Intake Total 814 1440 120 Output Total 2250 1000 Balance -1436 440 120 - Labs Result Diagrams: 11/08/17 05:36 11/07/17 03:38 Troponin/CKMB Troponin I 0.187 ng/mL (< 0.028) H 10/31/17 13:35 - Assessment/Plan 1. Atrial arrhythmia. 2. Pulmonary fibrosis 3. RA 4. HTN PLAN: - Digoxin for rate control due to low BP. - Not a candidate for ablation. - No new recs.
[2017-11-08 11:46] VITALS: BP 110/58; TEMP 97.6
[2017-11-08] MEDS: Ondansetron ODT 4 MG TAB PO PRN (11:51)
--- NOTE | 2017-11-08 13:20 | DIS ---
DATE OF ADMISSION: 10/31/2017 DATE OF DISCHARGE: 11/08/2017 DISPOSITION: Discharged home. PRIMARY CARE PROVIDER: Dr. Phu Lu. FINAL DIAGNOSES: Acute renal failure; acute on chronic respiratory failure; acute hepatic failure wi thout coma; pulmonary fibrosis, chronic; supraventricular tachycardia, coagulopathy secondary to live r failure, rheumatoid arthritis. DISCHARGE MEDICATIONS: Anoro Ellipta 1 inhalation daily, Xeljanz 5 mg a day, omeprazole 10 mg a day, lorazepam 2 mg at bedtime, aspirin 81 mg a day, prednisone 20 mg a day, Lasix 40 mg a day, digoxin 0 .125 mg a day. ALLERGIES: PENICILLIN, SULFAMETHOXAZOLE, TRIMETHOPRIM. CODE STATUS: FULL. PENDING AT THE TIME OF DISCHARGE: Nothing. CONSULTATIONS DURING HOSPITAL STAY: Dr. Homero Ayoub, Pulmonology; Dr. Gerald Mendez, Gastroenterolog y; Dr. Jostin Childers, Cardiology. PROCEDURES: None. HOSPITAL COURSE: The patient admitted to [place] [facility] to [facility] with anxiety, pulmonary fibrosis, she was short of breath. CAT scan of the brain was unremarkable. Chest x-ray revealed bilateral interstitial pulmonary markings. Her initial laboratory revealed bi lirubin of 2.3, AST 2072, ALT 3024, BNP 2265, creatinine 1.12, BUN 35, CO2 16, sodium 135, potassium 4.9. Lactic acid was 3.5. INR was 1.7. D-dimer was greater than 20. CBC: White count 12.3, hemog lobin 13.9, platelet count 192,000. CT of the thorax revealed no pulmonary embolus. Abdominal ultra sound suggested fatty liver. She was admitted with BiPAP for oxygenation, aggressive nebulizers and inhaled steroids. Dr. Ayoub saw her in consultation on 10/31/2017. Because of her edema, she was started on diuretics. He resumed management of her BiPAP. Dr. Gerald Mendez saw her on 11/01/2017. Fo llow CBCs showed a white count of 10.1, hemoglobin 13.1, platelet count of 166,000. Chemistries on 11/01/2017 showed continued very high AST and ALT at 2485 and 2553, total bilirubin is down to 1.3, creatinine was 1.27, BUN 32. Echocardiogram revealed normal LVEF at 60%-65%, large right ventricle, high pulmonary artery pressure. On 11/02/2017, Dr. Jostin Childers saw the patient. She was tried o n diltiazem for supraventricular tachycardia during her hospital stay, she improved steadily. Her mo st recent liver function test revealed a bilirubin of 0.9, AST 83, ALT 755. Her creatinine has range d from 0.99-1.57 consistent with chronic kidney disease stage 3. BUN has ranged from 38-43. Sodium has remained normal. Her INR dropped down to 1.3 by 11/04/2017. Her last CBC was done on 11/08/2017 , she had a 11.7 white count, elevated most likely due to prednisone, hemoglobin 14.5, platelet count of 122,000. Her physical exam currently, pulse ranging from 69-104, O2 sat 90-94 on Venturi mask, b lood pressure 108/73. Heart is regular rate and rhythm with occasional premature contractions. Ches t reveals fine rales posteriorly. The patient is comfortable at this time, stable for home care. Tamir phipps has been seen this morning by Dr. Rajiv Esquivel who agreed with transitioning to home care. Prescri ptions have been written for new medicines. Medicines discontinued had been discussed with the famil y. The patient is to see Dr. Ayoub this coming week for followup. In Dr. Ayoub's last note, he stated the patient will need a right heart catheterization as an outpatient basis for vasodilatory te sting. Patient is also to see Dr. Phu Lu in 1-2 weeks and followup. Patient is currently on O2 flow rate of 12 with a Venturi mask. Forty minutes spent preparing this discharge.
--- NOTE | 2017-11-08 14:06 | PRG ---
DATE OF SERVICE: 11/08/2017 SUBJECTIVE: Ms. Bates remains stable. OBJECTIVE: VITAL SIGNS: She is afebrile, heart 95, respiratory rate 24, oximetry is 94% on her mask. It is rec orded that she is 96% on room air, but this cannot be accurate and blood pressure 110/58. LUNGS: Remarkable for fine crackles at her bases. HEART: Regular rhythm. ABDOMEN: Soft. LABORATORY DATA: White count 11.7, hemoglobin 14.5, platelets 122. Sodium 139, potassium 3.9, chloride 96, bicarbonate 33, BUN 41, creatinine 1.22 yesterday. IMPRESSION: 1. Pulmonary fibrosis. 2. Rheumatoid arthritis. 3. Deconditioning. 4. Chronic respiratory failure, on oxygen at home. She has facemask and cannula oxygen at home. Th e family has an oximeter. I do believe it is reasonable for her to be discharged to follow up with Sung Ayoub in 2-3 weeks.
== END 2017-11-08 12:54 | disposition home or self-care (01) | DRG 196 ==
LOC: ERS 06:53 → IMCU/EMU 09:11
PROVIDERS: ADMIT Internal Medicine; ATTEND Internal Medicine
PROC: 5A09357 Assistance with Respiratory Ventilation, Less than 24 Consecutive Hours, Continuous Positive Airway Pressure (ICD-10-PCS; principal; 2017-10-31)
DX: M05.10 Rheumatoid lung disease with rheumatoid arthritis of unspecified site (principal); J96.21 Acute and chronic respiratory failure with hypoxia; K72.00 Acute and subacute hepatic failure without coma; J44.1 Chronic obstructive pulmonary disease with (acute) exacerbation; I24.8 Other forms of acute ischemic heart disease; N17.9 Acute kidney failure, unspecified; I47.1 Supraventricular tachycardia; D68.4 Acquired coagulation factor deficiency; J84.17 Other interstitial pulmonary diseases with fibrosis in diseases classified elsewhere; I27.81 Cor pulmonale (chronic); I27.29 Other secondary pulmonary hypertension; I50.811 Acute right heart failure; I12.9 Hypertensive chronic kidney disease with stage 1 through stage 4 chronic kidney disease, or unspecified chronic kidney disease; N18.3 Chronic kidney disease, stage 3 (moderate); F41.0 Panic disorder [episodic paroxysmal anxiety]; K21.9 Gastro-esophageal reflux disease without esophagitis; I95.2 Hypotension due to drugs; T46.1X5A Adverse effect of calcium-channel blockers, initial encounter; Z99.81 Dependence on supplemental oxygen; Z87.891 Personal history of nicotine dependence; Z88.0 Allergy status to penicillin; Z88.2 Allergy status to sulfonamides; Z88.8 Allergy status to other drugs, medicaments and biological substances; Z79.82 Long term (current) use of aspirin; Z79.899 Other long term (current) drug therapy; Y92.239 Unspecified place in hospital as the place of occurrence of the external cause
CPT/HCPCS: 36415; 36416; 51701; 70450; 71045; 71275; 76700; 76705; 80048; 80053; 80074; 80076; 81003; 81015; 82103; 82104; 82728; 82805; 83516; 83540; 83550; 83605; 83735; 83880; 84484; 85007; 85025; 85027; 85379; 85610; 85730; 86038; 86225; 87040; 87086; 93005; 93306; 93798; 94640; 94660; 94760; 96365; A4353; G8978-GP-CK; G8979-GP-CI; J0696; J7620

== ENCOUNTER 2017-12-05 09:32 | Outpatient (CLI) | payer MEDICARE | END 2017-12-05 09:33 | disposition home or self-care (01) | LOC: BICRAD 09:32 | PROVIDERS: ATTEND Internal Medicine Gastroenterology | DX: R19.4 Change in bowel habit (principal); R10.30 Lower abdominal pain, unspecified; R94.5 Abnormal results of liver function studies; R63.0 Anorexia; R11.0 Nausea; N17.9 Acute kidney failure, unspecified; J96.20 Acute and chronic respiratory failure, unspecified whether with hypoxia or hypercapnia | CPT/HCPCS: 74019 ==

== ENCOUNTER 2017-12-13 14:42 | Inpatient (IN) | payer MEDICARE ==
[~2017-12-13 14:42] MED LIST: ISOVUE-370 76%-LOCM 1 ML ONE
[2017-12-13 15:44] LABS: #Lymphocytes 0.6 thou/uL (1.20-3.40); #Monocytes 0.4 thou/uL (0.11-0.59); #Neutrophils 7.6 thou/uL (1.40-6.50); %Basophils 0.1 % (0.0-1.0); %Eosinophils 0.5 % (0.0-10.0); %Lymphocytes 6.4 % (21.0-51.0); %Monocytes 4.5 % (0.0-10.0); %Neutrophils 88.5 % (42.0-75.0); Hemoglobin 16.5 g/dL (12.0-16.0); Mean Corpuscular HGB CONC 33.6 g/dL (32.0-36.0); Mean Corpuscular Hemoglobin 34.8 pg (27.0-31.0); Mean Platelet Volume 8.9 fL (7.4-10.4); Platelet Count 134 thou/uL (130-400); RBC Distribution Width 14.3 % (11.5-14.5); Red Blood Cell (RBC) Count 4.75 mill/uL (4.20-5.40); White Blood Cell (WBC) Count 8.6 thou/uL (4.8-10.8)
--- NOTE | 2017-12-13 15:53 | RAD ---
FRONTAL VIEW CHEST: COMPARISON: 10/31/17. CLINICAL HISTORY: Abdominal pain. History of respiratory distress. FINDINGS: There is persistent interstitial prominence of each lung. Cardiomediastinal silhouette is stable. M ultiple densities related to prior vertebroplasty are again seen. Extrinsic artifacts limit detail. Stable curvilinear radiopaque density overlies the mediastinum. IMPRESSION: Stable chest with findings to indicate interstitial fibrosis. Correlate clinically. POS: [facility]
[2017-12-13 15:57] LABS: ALT (SGPT) 39 U/L (8-55); AST (SGOT) 58 U/L (5-34); Albumin 3.1 g/dL (3.4-4.8); Alkaline Phosphatase 151 U/L (40-150); Anion Gap 20 mmol/L (10-20); BUN (Urea Nitrogen) 35 mg/dL (9.8-20.1); Bilirubin, Total 1.3 mg/dL (0.2-1.2); CK (CPK) 131 U/L (29-168); Calc. Creatinine Clearance 0 mL/min (70-130); Carbon Dioxide 34 mmol/L (23-31); Chloride 86 mmol/L (98-107); Estimated GFR-MDRD 40; Globulin 3.4 g/dL (2.4-3.5); Glucose 99 mg/dL (83-110); Lipase 60 U/L (8-78); Potassium 3.6 mmol/L (3.5-5.1); Protein, Total 6.5 g/dL (6.0-8.3); Sodium 136 mmol/L (136-145)
[2017-12-13 16:06] LABS: CKMB 12.8 ng/mL (0-6.6); Troponin I 1.191 ng/mL (< 0.028)
--- NOTE | 2017-12-13 16:31 | CT ---
CT ABDOMEN AND PELVIS WITH CONTRAST: 12/13/17 COMPARISON: CTA chest 10/31/17. HISTORY: Diffuse abdominal pain and cramping. Diarrhea for four weeks. TECHNIQUE: Multiple contiguous axial images were obtained in a CT of the abdomen and pelvis with contrast. Coron al reformats were performed. FINDINGS: There are numerous hypodensities in the right kidney measuring up to 4.6 cm in size. This may represe nt cysts or severely dilated calyces. The renal pelvis appears enlarged with an abrupt transition wit h a nonvisualized ureter. This could represent a congenital UPJ obstruction. There is very minimal en hancing cortex of the right kidney. The left kidney is unremarkable. The gallbladder is not seen and has likely been removed. The liver, adrenal glands, spleen, and pancr eas are unremarkable. No free air, free fluid or stranding changes are seen in the abdomen or pelvis. There is scattered diverticula in the colon. The small bowel is unremarkable. The reproductive organs are unremarkable. No abdominal or pelvic lymphadenopathy are seen. Degenerative changes and vertebroplasty cement are seen in the spine. On the superior most slice, the re appears to be a filling defect within the right main pulmonary artery which could represent a pulm onary thromboembolism. This could also be artifactual. Atelectasis is seen in the lung bases. The abd ominal wall soft tissues are unremarkable. IMPRESSION: 1. No evidence of acute intra-abdominal/pelvic abnormality. 2. Possible pulmonary thromboembolism in the right lung. This could also be artifactual. 3. Bibasilar atelectasis. 4. Multiple cysts in the right kidney versus dilated calyces and renal pelvis. This could potent ially represent a chronic UPJ obstruction but is stable compared to the prior examination. 5. Diverticulosis. POS: [facility]
[2017-12-13 16:48] LABS: Bilirubin Negative (Negative); Blood, Urine Small (Negative); Clarity CLOUDY (Clear); Glucose, Urine (Dipstick) Negative (Negative); Leukocyte Negative (Negative); Nitrite Negative (Negative); Protein, Urine (Dipstick) 30 mg/dL (Neg-Trace); Specific Gravity, Urine 1.022 (1.002-1.036); pH, Urine 5.5 (5.0-9.0)
[2017-12-13 16:51] LABS: Bacteria/HPF None Seen HPF (None Seen); Squamous Epithelial 0-3 HPF (0-3); WBC/HPF 0-3 HPF (0-3)
[2017-12-13 16:54] LABS: Pathc Cast-AUWi Flag 2.76 (0-2.49)
[2017-12-13 16:57] LABS: Hyaline Casts/LPF 0-3 HYALINE CAST LPF (0-3 Hyaline); Manual Microscopic Reviewed? No Path Casts Seen; Renal Epithelial None Seen HPF (0-3); Transitional Epithelial NONE SEEN HPF (0-3)
[2017-12-13 17:43] LABS: PTT 25.1 SEC (22.9-36.1); Prothrombin Time 13.5 SEC (12.0-14.7)
[2017-12-13 18:17] LABS: CKMB 11.3 ng/mL (0-6.6); Critical Call CKMBM RESULT DECREASING; Critical Call Chem Troponin I RESULT DECREASING; Troponin I 1.085 ng/mL (< 0.028)
[2017-12-13] MEDS ORDERED: Enoxaparin Sodium 60 MG/0.6 ML SYRINGE SC SCH (19:00)
[2017-12-13 19:43] LABS: Lactic Acid 2.5 mmol/L (0.5-2.2)
[2017-12-13] MEDS: Dextrose 5 % And 0.9 % NaCl 1,000 ML IV SCH (20:15)
[2017-12-13] MEDS: Pantoprazole 40 MG VIAL IVP SCH (20:17)
[2017-12-13] MEDS ORDERED: Pravastatin Sodium 20 MG TAB PO SCH (21:00)
[2017-12-13 22:28] LABS: CKMB 11.5 ng/mL (0-6.6); Troponin I 1.112 ng/mL (< 0.028)
[2017-12-13] MEDS: Hydrocortisone Sod Succ/PF 100 mg/2 ml Vial IVP SCH (22:52)
--- NOTE | 2017-12-14 00:41 | HP ---
CHIEF COMPLAINT: Nausea, vomiting, diarrhea, abdominal pain x4 weeks. HISTORY OF PRESENT ILLNESS: The patient is a very pleasant 77-year-old female with a history of pulm onary fibrosis on oxygen at 2 liters, rheumatoid arthritis, COPD, history of hypertension, GERD and s upraventricular tachycardia and atrial tachycardia who presented to the hospital with complaints of n ausea, vomiting, abdominal pain, and diarrhea for the past 4 weeks. The patient has been recently di scharged from the hospital on 11/08/2017 and was initially treated for acute hypoxic respiratory fail ure and also for supraventricular tachycardia. The patient was seen by Cardiology and Electrophysiol brandan and no interventions in regards to ablation given her overall medical issues. No intervention fo r ablation, only medical management was recommended by EP. The patient had during that hospitalizati on also had a significant elevated transaminitis. The patient presents this time with worsening abdominal pain, nausea, vomiting, and diarrhea for the past 4 weeks. The patient further states that since her discharge from the hospital, she has not bee n having much of an appetite and has not been eating very much. According to the daughter who is at the bedside states that she barely takes 2 spoons of applesauce or yogurt and will feel full and will stop eating. According to the patient's family, she has not been drinking very much fluids either. She denies any chest pain, but states that she feels very nauseated and also complains of abdominal cramping all the time. The patient also states that she gets nauseated with food and without food. She also has been having diarrhea with food or without food. Her daughter was at the bedside states that she will eat 2 spoons of applesauce and then go to the bathroom and has diarrhea. The patient s tates that recently her digoxin was changed to every other day given her very high level of digoxin w hich was checked by her primary care doctor. The patient's daughter was at the bedside also states t hat she has been very complaint and has been taking all her medications regularly including her stero ids. The patient denies any fevers and denies any chest pain or chest pressure. The patient is very immobile. She only gets up from the bed to the wheelchair to the recliner. She does have physical therapy ordered; however, does not normally ambulate. Denies any burning-like sensation on urination . Denies any cough. The patient's family states that she desats on very minimal movement and is on oxygen 2-1/2 liters all the time. PAST MEDICAL HISTORY: As I mentioned pulmonary fibrosis on chronic oxygen, rheumatoid arthritis, [employer] D, SVT, hypertension, GERD. PAST SURGICAL HISTORY: Had appendectomy, cholecystectomy. ALLERGIES: She is allergic to BACTRIM. MEDICATIONS: Are as of the following: She takes omeprazole 10 mg daily, digoxin 0.125 mg daily that has been changed to every other day per family, Lasix 40 mg daily, prednisone 20 mg daily, aspirin 8 1 mg daily, lorazepam 2 mg at bedtime, Xeljanz 5 mg daily, and Anoro Ellipta one inhalation daily. SOCIAL HISTORY: The patient lives with her family here. She is from [place] [facility] [place]. According to jerome vázquez's daughter, she was living in the high [place] in [place]. Due to her pulmonary fibrosis, she i s currently living here in [place]. She is a former smoker. She quit about 16 years ago. She has lisa y significant history of smoking. She has a history of occasional alcohol use, but not recent. She is also and has 2 children and her currently is also sick and who is in [place]. PHYSICAL EXAMINATION: VITAL SIGNS: Are as of the following, temperature 97.8, respirations of 18, pulse of 60, oxygen of 8 9% on 4 liters; however, when I was in the room, she was in 91%-92% on 2 liters, blood pressure initi ally was 108/64; however, when I was in the room, she was 98/65. GENERAL: She is awake, alert, oriented x3. HEENT: She has got significant mouth dryness, appears very clinically dehydrated. NECK: No JVD was appreciated. CARDIOVASCULAR: S1, S2 present. She did have some irregular rate. No murmurs were heard. LUNGS: She has got mild crackles to the bilateral lower lung area. No wheezing or rhonchi noted. ABDOMEN: Bowel sounds are present x2. She does have a significant hematoma around her abdominal are a. She does have diffuse pain upon palpation around her abdomen. EXTREMITIES: She has pedal pulses are present. No edema to the lower extremities. NEUROLOGIC: No focal deficits noted. SKIN: She does have multiple bruising all over her abdomen area and her lower extremities. REVIEW OF SYSTEMS: All negative except for the ones mentioned above in the HPI. LABORATORY DATA: Area as following: WBCs of 8.6, hemoglobin of 16.5, hematocrit of 49.2, platelets of 134. She does not have any bands. Her coagulation is INR of 1.0, PT 13.5, PTT is 25.1. Chemistr y: Sodium of 136, potassium of 3.6, her CO2 is 34, which is at her baseline, BUN of 35, creatinine o f 1.29, which is also at baseline. Her total bilirubin is mildly elevated at 1.3, AST of 58, alkalin e phosphatase is 151. Her lactic acid is 4.5. Her CK is 12.8, troponin is 1.19. Her BNP is 2109.3. IMAGING: Chest x-ray upon my evaluation no acute infiltrates noted. She did have a CT abdomen and p jossy, which indicated no evidence of acute intra-abdominal pelvic abnormalities; however, it indicat ed a possible pulmonary thromboembolism in the right lung. It was also mentioned that this could be an artifactual bibasilar atelectasis and also multiple cysts in the right kidney versus dilated calic es and renal pelvis; however, this was not new and diverticulosis. ASSESSMENT AND PLAN: The patient is a very pleasant 77-year-old female who presents to the hospital with nausea, vomiting, abdominal pain, and diarrhea. 1. Nausea, vomiting, abdominal pain, and diarrhea. The differential for this is appears to be very broad, this could be secondary either to adrenal insufficiency versus digoxin toxicity versus nausea and her nausea symptoms could be either secondary to possible cardiac related given her history of rh eumatoid arthritis. Also, infectious cannot be ruled out. However, her diarrhea has been ongoing fo r 3-4 weeks and appears to be chronic in nature. She has no fever. We will check Clostridium diffic ile and stool culture to rule out any infectious process; however, at this time, I will not start her on any antibiotics given her normal leukocytosis. Given her symptoms of nausea, vomiting, abdominal pain, and diarrhea, we will start her on some Solu-Cortef. The patient has been very stressed recen tly given her being ill in [place]. Also in terms of her cardiac related symptoms, she has no chest pain; however, she has been nauseated, no significant vomiting. I did review her EKG and u hermilo reviewing of the EKG, she did have some ST depressions in V4-V6, which are new comparable to her previous EKG in October. We will consult Cardiology. We will trend her troponins. Also, we will start her on some Lovenox 1 mg/kg b.i.d. and also she is on aspirin and we will start her on some statin. I did speak with the patient to see if she has ever had cardiac catheterization. She states that she had one possible in [facility], but she does not recall if anything was found on the cardiac catheter ization. According to the patient's daughter, she does not have any stents and they are not aware if she had any recent stress test. We will also check a digoxin level since the patient's daughter men tioned that her digoxin level has been high and her primary care doctor had adjusted her digoxin medi cation to every other day. The symptoms could present also with digoxin toxicity. We will start the patient on some gentle hydration. She clinically appears to be volume depleted even though her BNP is elevated. I will start her on some gentle hydration. I will also start her on some Protonix b.i. d. given the fact that she has been taking all her medications including Lasix and prednisone and has not been eating very much this could be a sort of gastritis and an ulcer. If her symptoms do not im prove, may consider also consulting GI for possible endoscopy. We will also check a TSH on this samantha ent. 2. Lactic acidosis. This could be secondary to hypotension, I am not sure. We will continue to mon itor; however, this time, I do not think she needs antibiotics. 3. Hypotension. Her MAP has been above 65. I did review her notes from previous hospitalization. She has always had low blood pressure and she is already not eating or drinking very much and has bee n taking her diuretics, this could be multifactorial. However, currently she is maintaining her bloo d pressure and we will start her on some gentle hydration. 4. Malnutrition appears to be moderate to severe. She does not have an appetite, according to the mundo padilla, she has lost some pounds; however, was unable to tell me exactly how many pounds. We will s tart her on a regular diet and also put on her appetite stimulant and also may consider starting her on some Ensure. 5. Elevated troponins. We will again put her on aspirin and statin, and also a Lovenox or heparin a nd consult Cardiology. I am not sure if this is secondary to her underlying nausea, vomiting, abdomi nal pain, dehydration, in terms of demand ischemia versus something acute especially given her histor y of rheumatoid arthritis. She did have an echocardiogram in 10/2017, which indicated severely enlar ged right ventricular with moderate to severe tricuspid regurgitation and severely elevated pulmonary artery hypertension. 6. Possible premature atrial beats. She does have irregular rhythm; however, she does have some P w aves. Again, she was seen for this by EP and at that time medication was opted given her patient's m ultiple medical risk factors. 7. In terms for a code status, I had a discussion with the patient's daughter and not the patient si nce the patient is currently undergoing some emotional stress. The patient's daughter was approached in regards to resuscitation and also was told that if there would be a situation where she needed to be resuscitated, given her poor lung function, her chances of being extubated would be very, very lo w and would end up with trach and PEG if this would occur. The patient's daughter stated that her mo ther would not want to be trached and pegged. We will get also palliative care for symptom managemen t and also for possible discussing further code status with this patient. 8. Chronic kidney disease. We will continue to monitor.
[2017-12-14 04:47] LABS: ALT (SGPT) 27 U/L (8-55); AST (SGOT) 44 U/L (5-34); Albumin 2.4 g/dL (3.4-4.8); Alkaline Phosphatase 112 U/L (40-150); Anion Gap 12 mmol/L (10-20); BUN (Urea Nitrogen) 28 mg/dL (9.8-20.1); Bilirubin, Total 1.1 mg/dL (0.2-1.2); Calc. Creatinine Clearance 41 mL/min (70-130); Calcium 7.5 mg/dL (7.8-10.44); Carbon Dioxide 30 mmol/L (23-31); Chloride 95 mmol/L (98-107); Estimated GFR-MDRD 55; Globulin 2.6 g/dL (2.4-3.5); Glucose 213 mg/dL (83-110); Potassium 2.9 mmol/L (3.5-5.1); Sodium 134 mmol/L (136-145)
[2017-12-14] MEDS ORDERED: Potassium Chloride 20 MEQ TAB PO SCH (05:00)
[2017-12-14] MEDS: Dextrose 5 % And 0.9 % NaCl 1,000 ML IV SCH ×2 (05:52→14:48)
[2017-12-14] MEDS: Hydrocortisone Sod Succ/PF 100 mg/2 ml Vial IVP SCH ×2 (05:52→20:44)
[2017-12-14 06:19] LABS: Band 36 % (5-11); Hemoglobin 13.6 g/dL (12.0-16.0); Lymphocytes 4 % (21-51); MDiff Complete? YES; Mean Corpuscular HGB CONC 33.7 g/dL (32.0-36.0); Mean Corpuscular Hemoglobin 34.6 pg (27.0-31.0); Mean Platelet Volume 8.3 fL (7.4-10.4); Metamyelocyte 1 % (0-0); Monocytes 3 % (0-10); Neutrophil 56 % (42-75); PLT Morphology Comment Appears Decreased; Platelet Count 126 thou/uL (130-400); RBC Distribution Width 14.4 % (11.5-14.5); Red Blood Cell (RBC) Count 3.92 mill/uL (4.20-5.40); White Blood Cell (WBC) Count 8.7 thou/uL (4.8-10.8)
[2017-12-14] MEDS: Dronabinol 2.5 MG CAP PO SCH ×2 (10:23→17:31)
[2017-12-14] MEDS: Aspirin 81 mg Enteric Coated Tablet PO SCH (10:23)
[2017-12-14] MEDS: Pantoprazole 40 MG VIAL IVP SCH ×2 (10:24→20:44)
[2017-12-14 12:46] LABS: Anion Gap 16 mmol/L (10-20); BUN (Urea Nitrogen) 27 mg/dL (9.8-20.1); Calc. Creatinine Clearance 34 mL/min (70-130); Calcium 7.4 mg/dL (7.8-10.44); Carbon Dioxide 26 mmol/L (23-31); Chloride 98 mmol/L (98-107); Estimated GFR-MDRD 45; Glucose 229 mg/dL (83-110); Potassium 3.8 mmol/L (3.5-5.1); Sodium 136 mmol/L (136-145)
[2017-12-14] MEDS ORDERED: Enoxaparin Sodium 40 MG/0.4 ML SYRINGE SC SCH (15:30)
--- NOTE | 2017-12-14 15:52 | PDOC.PN ---
- Subjective Encounter Start Date: 12/14/17 Encounter Start Time: 13:55 Subjective: pt up in bed no complains - Objective Resuscitation Status: Resuscitation Status FULL:Full Resuscitation Vital Signs & Weight: Vital Signs (12 hours) Temp Pulse Resp BP Pulse Ox 12/14/17 13:43 84 16 94 L 12/14/17 12:55 97.1 F L 84 16 101/67 91 L 12/14/17 12:00 94 L 12/14/17 10:55 98.2 F 87 18 103/68 98 12/14/17 08:00 97.6 F 89 19 98 12/14/17 07:32 97.6 F 89 19 94/58 L 94 L 12/14/17 03:52 97.6 F 87 16 99/60 98 Weight Weight 121 lb 8 oz I&O: 12/13/17 12/14/17 12/15/17 06:59 06:59 06:59 Intake Total 1250 Balance 1250 Result Diagrams: 12/14/17 03:42 12/14/17 12:19 Phys Exam - Physical Examination HEENT: PERRLA, moist MMs, sclera anicteric, TM's clear, oral pharynx no lesions , 2+ tonsils Neck: no nodes, no JVD, supple, full ROM Respiratory: no wheezing, no rales, no rhonchi, wheezing present, clear to auscultation bilateral Cardiovascular: RRR, no significant murmur, no rub, gallop, irregular Gastrointestinal: soft, non-tender, no distention, positive bowel sounds Dx/Plan (1) Abdominal pain Code(s): R10.9 - UNSPECIFIED ABDOMINAL PAIN Status: Acute (2) Nausea & vomiting Code(s): R11.2 - NAUSEA WITH VOMITING, UNSPECIFIED Status: Acute (3) Loss of appetite Code(s): R63.0 - ANOREXIA Status: Acute (4) Pulmonary fibrosis Code(s): J84.10 - PULMONARY FIBROSIS, UNSPECIFIED Status: Chronic Comment: Continue pulmonary supportive mgmt, continue Anoro Ellipta, d/c prednisone as of 11/05/17 . patient on baseline Dafluzicort at home. - Plan will decrease steroids -: gi consulted -: encouraged pt to eat, pt on ppi -: pt afebrile. PT ordered. pt seen by cards and no intervention * . Review of Systems - Review of Systems ENT: negative: Ear Pain, Ear Discharge, Nose Pain, Nose Discharge, Nose Congestion, Mouth Pain, Mouth Swelling, Throat Pain, Throat Swelling, Other Respiratory: negative: Cough, Dry, Shortness of Breath, Hemoptysis, SOB with Excertion, Pleuritic Pain, Sputum, Wheezing Cardiovascular: negative: chest pain, palpitations, orthopnea, paroxysmal nocturnal dyspnea, edema, light headedness, other Gastrointestinal: negative: Nausea, Vomiting, Abdominal Pain, Diarrhea, Constipation, Melena, Hematochezia, Other - Medications/Allergies Allergies/Adverse Reactions: Allergies Allergy/AdvReac Type Severity Reaction Status Date / Time Penicillins Allergy Verified 10/31/17 10:32 sulfamethoxazole Allergy Verified 10/31/17 10:32 [From Bactrim] trimethoprim [From Bactrim] Allergy Verified 10/31/17 10:32 Medications: Current Medications Albuterol/Ipratropium (Duoneb) 3 ml NEB [id number] ON LICENSE OF [facility] Last Admin: 12/14/17 13:43 Dose: 3 ml Aspirin (Ecotrin) 81 mg PO DAILY ON [facility] OF [facility] Last Admin: 12/14/17 10:23 Dose: 81 mg Budesonide (Pulmicort Neb Solution) 0.25 mg INH BID-RT ON LICENSE OF [facility] Dronabinol (Marinol) 2.5 mg PO BID-AC ON [facility] OF [facility] Last Admin: 12/14/17 10:23 Dose: 2.5 mg Enoxaparin Sodium (Lovenox) 40 mg SC NOW ON LICENSE OF [facility] Stop: 12/14/17 17:30 Hydrocortisone Sodium Succinate (Solu-Cortef) 25 mg IVP BID ON LICENSE OF [facility] Dextrose/Sodium Chloride (D5 0.9% Ns) 1,000 mls @ 100 mls/hr IV .Q10H ON LICENSE OF [facility] Last Admin: 12/14/17 14:48 Dose: 1,000 mls Magnesium Sulfate 1 gm/ Sodium (Chloride) 102 mls @ 100 mls/hr IVPB 1400 ON LICENSE OF [facility] Stop: 12/14/17 16:00 Last Admin: 12/14/17 14:48 Dose: 102 mls Lorazepam (Ativan) 0.5 mg PO HS ON LICENSE OF [facility] Pantoprazole Sodium (Protonix) 40 mg IVP Q12HR ON LICENSE OF [facility] Last Admin: 12/14/17 10:24 Dose: 40 mg Xeljanz Sr 11 Mg 0 each PO DAILY ON LICENSE OF [facility]
--- NOTE | 2017-12-14 17:37 | CON ---
DATE OF CONSULTATION: 12/14/2017 CHIEF COMPLAINT: Loss of appetite and abdominal pain. HISTORY OF PRESENT ILLNESS: Ms. Bates is a 77-year-old woman who was admitted to the hospital in [facility] with ischemic hepatopathy. She had acute renal failure associated with that at that time as well. She improved with hydration and was discharged home. Since then, she has had poor appetite, taking in very few calories per day. She has had multiple episodes per day of cramping periumbilical abdom inal pain with unproductive urges to go to the bathroom. Every now and then she would pass some diar cynthia, but has had no blood in the stool. Finally, her daughter took her back to the emergency room y esterday because she had continued abdominal pain and very poor oral intake. In ER, she was noted to be severely dehydrated. She was given IV fluids and her hemoglobin has dropped from 16.5-13.6 with rehydration. Her liver tests have greatly improved. She has had no fever. She does get nauseated w hen she tries to eat, but has not vomited. When she is having the cramping unproductive urges to hav e bowel movements, she also will gag sometimes. She has had some orthostatic symptoms as well. PAST MEDICAL HISTORY: Severe pulmonary fibrosis on home oxygen, rheumatoid arthritis, hypertension, GERD. She is noted to have increased pulmonary pressures and right heart dilation by previous echoca rdiogram. After hydration today, she has no abdominal pain, no nausea, has had no bowel movement. PAST SURGICAL HISTORY: Appendectomy, cholecystectomy. She had a colonoscopy a couple of years ago [facility]. She reportedly had diverticulosis at that time. No polyps or cancers were seen. FAMILY HISTORY: Negative for GI malignancies. SOCIAL HISTORY: She quit smoking years ago. No recent alcohol use. No history of drug use. ALLERGIES: BACTRIM. MEDICATIONS: Prior to admission, omeprazole, digoxin, furosemide, prednisone, aspirin, lorazepam, Xe ljanz, and Anoro Ellipta. REVIEW OF SYSTEMS: Negative x10 systems reviewed except as stated in history of present illness. PHYSICAL EXAMINATION: VITAL SIGNS: Temperature 97.1, pulse 84, oxygen saturation 94% on 3 liters, blood pressure 101/61. GENERAL: She is in no acute distress. She is awake and alert, oriented to her name and place, but u nable to recall the year. Her grandson is in the room with her and does report she has had some conf usion. EYES: Have no scleral icterus. OROPHARYNX: Clear, without lesions. NECK: No cervical or supraclavicular lymphadenopathy. LUNGS: Clear to auscultation bilaterally. HEART: Regular rate and rhythm. ABDOMEN: Soft, currently nontender, nondistended. Bowel sounds are present. EXTREMITIES: No lower extremity edema. LABORATORY DATA: Creatinine 1.16, bilirubin 1.1, AST 44, ALT 27, alkaline phosphatase 112. INR 1.0, white blood cell count 8.7, hemoglobin is 13.6 down from 16.5 yesterday. MCV 103, platelets 126. S he had viral hepatitis screen which was negative in October. Autoimmune markers for liver disease were negative in October. Alpha 1 antitrypsin level was normal. IMPRESSION: 1. Recent ischemic hepatopathy in 10/2018, now improved. This is likely a result of her decreased o xygenation with her pulmonary fibrosis plus pulmonary hypertension and some degree unlikely of cardio myopathy and right heart overload. She is clinically improved from a liver standpoint. 2. Admission now with severe dehydration. Her hemoglobin has dropped from 16.5-13.5 with rehydratio n. She has had persistent or intermittent cramping periumbilical abdominal pain with unproductive ur ges to have bowel movements along with some nausea as well. She has had very poor oral intake and po or appetite since the previous hospitalization. She had stool studies performed on 12/12/2017 which were negative for C. diff and negative culture. Her white blood cell count was elevated. She could have some degree of ischemic colitis resulting in the abdominal pain and cramping and unproductive ur ges and poor appetite. She does not have any inflammatory changes noted by CT scan or significant bl oody diarrhea. RECOMMENDATIONS: 1. Primary treatment currently is rehydration. 2. After she regains some strength, then consider upper and lower endoscopy to rule out peptic ulcer or gastritis or significant colitis. This is assuming her respiratory and cardiac status are adequa te for that. Currently, she seems to be breathing comfortably. Her symptoms have all actually resol anjana today after rehydration. 3. Continue proton pump inhibitor for now.
[2017-12-14] MEDS: Budesonide 0.25 MG/2 ML NEB INH SCH (19:06)
--- NOTE | 2017-12-14 19:17 | CON ---
DATE OF CONSULTATION: 12/14/2017 HISTORY OF PRESENT ILLNESS: The patient is a 77-year-old woman with a history of SVT and severe pulm onary fibrosis, who presented with nausea, vomiting, and diarrhea. The patient suffers from fibrosis . She is on chronic oxygen therapy. The patient also has a history of SVT. The patient has been tr eated medically due to her overall poor health. She states she is having difficulty with nausea and vomiting. She subsequently was on higher dose digoxin. This dose was decreased. The patient presen sae emergently with nausea, vomiting, and diarrhea. PAST MEDICAL HISTORY: Significant for, 1. SVT. 2. Pulmonary fibrosis. 3. Rheumatoid arthritis. PAST SURGICAL HISTORY: Appendectomy, cholecystectomy. ALLERGIES: She is allergic to PENICILLIN, SULFA, and TRIMETHOPRIM. SOCIAL HISTORY: Former smoker. FAMILY HISTORY: No strong family history of heart disease. REVIEW OF SYSTEMS: Otherwise unremarkable except for increasing weakness. PHYSICAL EXAMINATION: VITAL SIGNS: Blood pressure 103/68. NECK: No jugular venous distention. LUNGS: Have crackles throughout both lung hawkins. HEART: Regular rate and rhythm. Normal S1, S2. ABDOMEN: Nondistended. EXTREMITIES: Trace edema. LABORATORY RESULTS: Her sodium is 134, potassium 3.9, chloride 95, bicarbonate 30, BUN 28, creatinin e is 0.97, glucose 213. Troponin is 1.1. White blood cell count 8.7, hemoglobin 13.6, hematocrit 40 .3, platelets are 126. Her EKG revealed multifocal atrial tachycardia with an ST-T wave abnormality suggestive of ischemia. IMPRESSION: 1. Refractory nausea and vomiting. 2. Elevated troponin level, probably secondary to demand ischemia. 3. Severe pulmonary fibrosis. 4. Chronic obstructive pulmonary disease. 5. History of supraventricular tachycardia. This patient suffers from severe pulmonary fibrosis. She is admitted with nausea and vomiting. The patient's digoxin has been discontinued. I expect the elevated troponin level is secondary to demand ischemia since she is asymptomatic. We will follow this patient with you through [facility].
--- NOTE | 2017-12-14 19:33 | CON ---
DATE OF CONSULTATION: 12/14/2017 HISTORY OF PRESENT ILLNESS: Ms. Bates is a 77-year-old female. She has been complaining of limite d ability to eat, nausea, vomiting, and weight loss for quite some time. She has underlying pulmonar y fibrosis. It was diagnosed 6 years ago. She is progressively hypoxemic over the few years, she arnold s been living with this. She is originally from [facility], but lives here primarily now. She also has rheumatoid arthritis. It is unclear to me whether or not this is all rheumatoid interst itial lung disease or an independent process. She has hypertension, reflux disease. She had an appointment scheduled with Gastroenterology, but had not made it to the appointment day . She also has had some abdominal discomfort with this. She has had an abdominal CT this admission. She eats very little and then has to go to the bathroom. PAST MEDICAL HISTORY: Remarkable for recent hospitalization with SVT evaluated by EP. She has had a ppendectomy, cholecystectomy, reflux disease, hypertension. SOCIAL HISTORY: She is a nonsmoker, nondrinker. ALLERGIES: She reports allergies to SULFA. FAMILY HISTORY: Negative for lung disease in early age. MEDICATIONS: She is on Prilosec, digoxin, Lasix, prednisone, aspirin, Ativan, Xeljanz, (02:21) . She has a very supportive family here in [place]. PHYSICAL EXAMINATION: GENERAL: She is afebrile, heart rate 77, respiratory rate 16, oximetry is 94 on 3 liters. HEENT: Pupils are equal. Sclerae are anicteric. NECK: Supple. LUNGS: Remarkable for bibasilar crackles. HEART: Regular rhythm. S1 and S2 are normal. ABDOMEN: Soft and nontender. EXTREMITIES: Without clubbing, cyanosis, or edema. NEUROLOGIC: Grossly nonfocal. Abdomen and pelvis CT shows an artifactual abnormality at the right base. This was not a CT pulmonar y angiogram. It is most likely atelectatic. Renal cysts were seen. Diverticulosis were seen. She was anticoagulated based on her abdomen and pelvis CT. I have stopped the Lovenox. IMPRESSION: 1. Underlying pulmonary fibrosis. 2. Intolerance of p.o. intake for unclear etiology. Gastroenterology has been consulted. I would recommend stopping her anticoagulation. We have to follow the other physicians caring for her. Eliminate unnecessary medicines. There is no reason to have her on a lipid drug at this time. IV st eroids are reasonable. She is on Marinol, but I am not really sure that is going to solve the problem given that she eats an d then she has to go to the bathroom. Marinol probably will not help that. I will wait for GI's inp ut stomach.
[2017-12-14] MEDS: Lorazepam 0.5 MG TAB PO SCH (20:43)
[2017-12-14] MEDS ORDERED: Enoxaparin Sodium 60 MG/0.6 ML SYRINGE SC SCH (21:00)
[2017-12-15] MEDS: Dextrose 5 % And 0.9 % NaCl 1,000 ML IV SCH (04:49)
[2017-12-15 05:41] LABS: Anion Gap 14 mmol/L (10-20); BUN (Urea Nitrogen) 22 mg/dL (9.8-20.1); Calc. Creatinine Clearance 48 mL/min (70-130); Calcium 7.2 mg/dL (7.8-10.44); Carbon Dioxide 24 mmol/L (23-31); Chloride 102 mmol/L (98-107); Estimated GFR-MDRD 66; Glucose 157 mg/dL (83-110); Potassium 3.3 mmol/L (3.5-5.1); Sodium 137 mmol/L (136-145)
[2017-12-15] MEDS: Budesonide 0.25 MG/2 ML NEB INH SCH ×2 (06:36→19:54)
[2017-12-15] MEDS: Pantoprazole 40 MG VIAL IVP SCH ×2 (08:44→20:04)
[2017-12-15] MEDS: Aspirin 81 mg Enteric Coated Tablet PO SCH (08:44)
[2017-12-15] MEDS: Hydrocortisone Sod Succ/PF 100 mg/2 ml Vial IVP SCH (08:44)
[2017-12-15] MEDS: XELJANZ 11 MG PO SCH (08:46)
[2017-12-15] MEDS ORDERED: TOFACITINIB CITRATE 5 MG PO SCH (09:00)
[2017-12-15] MEDS ORDERED: Citalopram 20 MG TAB PO SCH (09:00)
[2017-12-15] MEDS ORDERED: Dextrose 5 %-0.45 % NaCl 1,000 ML IV SCH (09:45)
[2017-12-15] MEDS ORDERED: Potassium Chloride 20 MEQ TAB PO SCH (09:45)
[2017-12-15] MEDS ORDERED: Potassium Chloride 40 MEQ in Premix Bag 1 BAG IVPB SCH (09:45)
--- NOTE | 2017-12-15 09:55 | PRG ---
DATE OF SERVICE: 12/15/2017 SERVICE: Pulmonary Medicine INTERVAL HISTORY: The patient is doing fine from a respiratory standpoint. She is basically at her baseline. She denies any current shortness of breath, chest pain, nausea, vomiting, fevers or chills. She is tolerating a little bit more p.o. She denies any chest pain, shortness of breath, cough or sputum production. PHYSICAL EXAMINATION: VITAL SIGNS: Afebrile, pulse 91, blood pressure 126/82, respirations 20, saturation 93% on 3 liters nasal cannula. GENERAL: The patient is awake, alert, in no apparent distress. LUNGS: Decent air entry. Crackles are present. HEART: Normal rate, regular. ABDOMEN: Soft, nontender, nondistended. Bowel sounds are positive. MUSCULOSKELETAL: No cyanosis or clubbing. There is 1+ pitting in the bilateral lower extremities with a little bit of ecchymoses on her legs. GENITOURINARY: No Jenkins. NEUROLOGIC: Grossly nonfocal. LABORATORY DATA: Creatinine 0.83. BUN 27, bicarbonate 24. Potassium 3.3. Basic metabolic profile is otherwise unremarkable. ASSESSMENT: 1. Pulmonary fibrosis, currently at baseline. 2. Rheumatoid arthritis associated interstitial lung disease. 3. Chronic hypoxic respiratory failure, currently at baseline. 4. Pulmonary hypertension, severe. 5. Abdominal pain. DISCUSSION AND PLAN: The patient is currently optimized from a respiratory standpoint to proceed with a EGD/colonoscopy if GI is so inclined. I will deescalate her IV fluids. We will get her into a chair 2-3 times on a daily basis and start enrolling her with physical therapy. Be careful with positive airway pressure as she is likely pre-load dependent given her pulmonary hypertension and dehydration. Pulmonary Critical Care will continue to follow along while she remains in house. [facility]
[2017-12-15] MEDS: Dronabinol 2.5 MG CAP PO SCH ×2 (10:06→17:26)
[2017-12-15] MEDS: Potassium Chloride 20 MEQ in Premix Bag 1 BAG IVPB SCH ×2 (11:13→14:08)
[2017-12-15] MEDS ORDERED: Fleet Enema 133 ML BOT PR SCH (14:30)
--- NOTE | 2017-12-15 14:55 | PRG ---
DATE OF SERVICE: 12/15/2017 SUBJECTIVE: The patient is without change. She reports she is unable to eat very little. Once she does, she has severe cramping abdominal pain and urgency to have a bowel movement. OBJECTIVE: VITAL SIGNS: Temperature 97.4, pulse 84, respiratory rate 16, blood pressure 96/63. CHEST: Bilateral rhonchi. CARDIOVASCULAR: Regular rate and rhythm. ABDOMEN: Soft, nontender, without organomegaly or masses. LABORATORY DATA: Shows hemoglobin 13.6 and potassium 3.3. ASSESSMENT: 1. Severe dehydration and inability to eat. 2. Tenesmus. 3. Lower abdominal cramping. 4. Pulmonary fibrosis and pulmonary hypertension. RECOMMENDATIONS: EGD and flexible sigmoidoscopy in a.m.
[2017-12-15] MEDS ORDERED: Potassium Chloride 20 MEQ in Premix Bag 1 BAG IVPB SCH (16:00)
[2017-12-15] MEDS ORDERED: Dicyclomine 10 MG CAP PO PRN (16:51)
[2017-12-15] MEDS: Lorazepam 0.5 MG TAB PO PRN ×2 (17:25→23:45)
[2017-12-15 18:04] LABS: pH, Arterial 7.41 (7.35-7.45)
[2017-12-15 18:05] LABS: Actual Bicarbonate (HCO3a) 15.8 mEq/L (22-28); Base Excess (BEa) -7.1 mEq/L (-2.0 to +3.0); CO2 Tension 25.7 mmHg (35.0-45.0); O2 Tension (PaO2) 51.9 mmHg (> 70.0)
[2017-12-15 18:06] LABS: Hemoglobin (Hb) 14.2 g/dL (12.0-16.0)
[2017-12-15 18:07] LABS: ALV-art Gradient 272.475 (0-20); Analyzer IN Cardio ER; Puncture Site RBA
[2017-12-15] MEDS ORDERED: Furosemide 20 MG/2 ML VIAL SLOW IVP SCH (18:45)
[2017-12-15] MEDS ORDERED: methylPREDNISolone Sod Succ/PF 125 MG/2 ML VIAL IVP SCH (18:45)
--- NOTE | 2017-12-15 19:12 | RAD ---
PORTABLE UPRIGHT FRONTAL CHEST RADIOGRAPH: Date: 12-15-17 Comparison: 12-13-17 History: Shortness of breath. FINDINGS: Multilevel kyphoplasty changes noted at the thoracolumbar junction, stable. Coarse increased linear i nterstitial density noted throughout both lungs with extensive emphysematous change demonstrating an upper lobe predominance. Blunting of bilateral costophrenic angles suggest small volume pleural fluid and/or pleural thickening, stable. No pneumothorax, alveolar edema, or lobar consolidation. IMPRESSION: No significant interval change. POS: [facility]
[2017-12-15] MEDS: Lorazepam 0.5 MG TAB PO SCH (20:02)
--- NOTE | 2017-12-15 20:15 | PDOC.PN ---
- Subjective Encounter Start Date: 12/15/17 Encounter Start Time: 13:00 Subjective: pt up in bed no complains -: pt's daughter feels she gets anxious at times - Objective Resuscitation Status: Resuscitation Status FULL:Full Resuscitation Vital Signs & Weight: Vital Signs (12 hours) Temp Pulse Resp BP Pulse Ox 12/15/17 19:56 88 16 100 12/15/17 19:54 88 16 100 12/15/17 18:23 130 H 117/82 12/15/17 16:30 97.8 F 84 24 H 105/73 90 L 12/15/17 12:55 100 20 12/15/17 11:34 97.4 F L 84 16 96/63 90 L Weight Admit Weight 121 lb 8 oz Weight 121 lb 8 oz I&O: 12/14/17 12/15/17 12/16/17 06:59 06:59 06:59 Intake Total 1250 1240 180 Balance 1250 1240 180 Result Diagrams: 12/14/17 03:42 12/15/17 03:52 Phys Exam - Physical Examination HEENT: PERRLA, moist MMs, sclera anicteric, TM's clear, oral pharynx no lesions , 2+ tonsils Neck: no nodes, no JVD, supple, full ROM mild crackles to bases Gastrointestinal: soft, non-tender, positive bowel sounds Dx/Plan (1) Abdominal pain Code(s): R10.9 - UNSPECIFIED ABDOMINAL PAIN Status: Acute (2) Nausea & vomiting Code(s): R11.2 - NAUSEA WITH VOMITING, UNSPECIFIED Status: Acute (3) Loss of appetite Code(s): R63.0 - ANOREXIA Status: Acute (4) Pulmonary fibrosis Code(s): J84.10 - PULMONARY FIBROSIS, UNSPECIFIED Status: Chronic Comment: Continue pulmonary supportive mgmt, continue Anoro Ellipta, d/c prednisone as of 11/05/17 . patient on baseline Dafluzicort at home. - Plan pt will undergo EGD and flex sigmoid in am -: she is drinking ensure clear -: will change her iv steroids to oral prednisone * . Review of Systems - Review of Systems ENT: negative: Ear Pain, Ear Discharge, Nose Pain, Nose Discharge, Nose Congestion, Mouth Pain, Mouth Swelling, Throat Pain, Throat Swelling, Other Respiratory: negative: Cough, Dry, Shortness of Breath, Hemoptysis, SOB with Excertion, Pleuritic Pain, Sputum, Wheezing Cardiovascular: negative: chest pain, palpitations, orthopnea, paroxysmal nocturnal dyspnea, edema, light headedness, other Gastrointestinal: Abdominal Pain Genitourinary: negative: Dysuria, Frequency, Incontinence, Hematuria, Retention , Other - Medications/Allergies Allergies/Adverse Reactions: Allergies Allergy/AdvReac Type Severity Reaction Status Date / Time Penicillins Allergy Verified 10/31/17 10:32 sulfamethoxazole Allergy Verified 10/31/17 10:32 [From Bactrim] trimethoprim [From Bactrim] Allergy Verified 10/31/17 10:32 Medications: Current Medications Albuterol/Ipratropium (Duoneb) 3 ml NEB [id number] [facility] Last Admin: 12/15/17 19:56 Dose: 3 ml Aspirin (Ecotrin) 81 mg PO DAILY [facility] Last Admin: 12/15/17 08:44 Dose: 81 mg Budesonide (Pulmicort Neb Solution) 0.25 mg INH BID-RT [facility] Last Admin: 12/15/17 19:54 Dose: 0.25 mg Dicyclomine HCl (Bentyl) 10 mg PO BID PRN PRN Reason: Pain Digoxin (Lanoxin) 0.125 mg PO F [facility] Dronabinol (Marinol) 2.5 mg PO BID-AC [facility] Last Admin: 12/15/17 17:26 Dose: 2.5 mg Furosemide (Lasix) 20 mg SLOW IVP NOW [facility] Stop: 12/15/17 20:45 Last Admin: 12/15/17 19:48 Dose: 20 mg Lorazepam (Ativan) 0.5 mg PO HS [facility] Last Admin: 12/15/17 20:02 Dose: 0.5 mg Lorazepam (Ativan) 0.5 mg PO BID PRN PRN Reason: Anxiety/Agitation Last Admin: 12/15/17 17:25 Dose: 0.5 mg Methylprednisolone Sodium Succinate (Solu-Medrol) 100 mg IVP NOW [facility] Stop: 12/15/17 20:45 Last Admin: 12/15/17 19:48 Dose: 100 mg Pantoprazole Sodium (Protonix) 40 mg IVP Q12HR [facility] Last Admin: 12/15/17 20:04 Dose: 40 mg Xeljanz Sr 11 Mg 0 each PO DAILY [facility] Last Admin: 12/15/17 08:46 Dose: 1 each Potassium Chloride (Klor-Con) 20 meq PO NOW [facility] Stop: 12/15/17 22:00 Last Admin: 12/15/17 20:00 Dose: 20 meq Prednisone (Prednisone) 20 mg PO QAM-WM [facility] Sodium Biphosphate/Sodium Phosphate (Fleet Enema) 133 ml WI ONE [facility] Stop: 12/16/17 14:31 Sodium Chloride (Flush - Normal Saline) 10 ml IVF Q12HR [facility] Last Admin: 12/15/17 20:01 Dose: 10 ml Sodium Chloride (Flush - Normal Saline) 10 ml IVF PRN PRN PRN Reason: Saline Flush
--- NOTE | 2017-12-16 00:05 | PRG ---
DATE OF SERVICE: 12/15/2017 PULMONARY AND CRITICAL CARE PROGRESS NOTE SUBJECTIVE: The patient early this evening thought that this patient is experiencing severe hypoxemi a. She has a history of pulmonary fibrosis that is apparently induced by rheumatoid arthritis. She is scheduled for some type of operative procedure tomorrow. Her blood gas showed severe hypoxemia th at was refractory to a Ventimask. She was transferred down to the IMCU. I gave her a dose of steroi ds and a dose of diuretics. I came and saw about 10:42 p.m., she appeared to be doing well. She is satting between 90%-100% on a 40% Ventimask. Her breath sounds are fairly clear bilaterally except f or some crackles in the very far basis. X-ray from earlier showed pulmonary vascular congestion. It is my opinion, she probably had superimposed pulmonary edema on top of her pulmonary fibrosis. Sh e seems to respond well to diuretics. She will be kept in the IMCU overnight. Hopefully, transfer b ack to the floor tomorrow.
[2017-12-16] MEDS: Budesonide 0.25 MG/2 ML NEB INH SCH ×3 (07:34→19:19)
[2017-12-16] MEDS: Dronabinol 2.5 MG CAP PO SCH ×2 (07:50→16:10)
[2017-12-16] MEDS: predniSONE 20 MG TAB PO SCH (08:27)
[2017-12-16] MEDS: Aspirin 81 mg Enteric Coated Tablet PO SCH (08:27)
[2017-12-16] MEDS: XELJANZ 11 MG PO SCH (08:27)
[2017-12-16] MEDS: Pantoprazole 40 MG VIAL IVP SCH ×2 (08:27→20:57)
--- NOTE | 2017-12-16 10:15 | PRG ---
DATE OF SERVICE: 12/16/2017 SERVICE: Pulmonary Medicine INTERVAL HISTORY: The patient did poorly last night. Into the afternoon, she started having increas ing work of breathing. IV fluids were discontinued and she was given a single dose of Lasix. She wa s brought down to the [facility] for closer monitoring. Overnight, she stabilized. She did not require an y noninvasive ventilation. She denies any current chest pain, nausea, vomiting, fevers or chills. H er appetite is poor. She has yet to be out of bed today. Otherwise, there has been no interval herzog ge to her condition. PHYSICAL EXAMINATION: VITAL SIGNS: Afebrile, pulse 105, blood pressure 114/70, respirations 22, saturation 99% on 4 liters nasal cannula. GENERAL: The patient is awake, alert, no apparent distress. LUNGS: Decent air entry. Crackles are present. No prolonged expiratory phase or wheezing is apprec iated. HEART: Normal rate, regular. ABDOMEN: Soft, nontender, nondistended. Bowel sounds are positive. MUSCULOSKELETAL: No cyanosis or clubbing. There is no pitting in the bilateral lower extremities. NEUROLOGIC: Grossly nonfocal. LABORATORY DATA: WBC 8.7, hemoglobin 13.6, platelets 126,000. Band count is 36%. PH 7.41, pCO2 of 26, pO2 of 52. Basic metabolic profile is otherwise unremarkable. Potassium 3.3. IMAGING: Chest x-ray demonstrates findings consistent with advanced interstitial process of the bila teral lung hawkins. No obvious effusion is present. ASSESSMENT: 1. Acute on chronic hypoxic respiratory failure. 2. Pulmonary fibrosis, at baseline. 3. Rheumatoid arthritis, associated interstitial lung disease. 4. Pulmonary hypertension, severe. 5. Abdominal pain. DISCUSSION AND PLAN: The patient responded very nicely to a dose of diuretics. We will continue to work on mobilizing the patient by getting her into a chair 3 times daily. I will repeat laboratories in the morning. Once again, from my perspective, she can proceed with an EGD. I would avoid consci ous sedation and excessive positive airway pressure intraoperative.
--- NOTE | 2017-12-16 13:41 | PQF ---
Date: 12-16-17 ATTN: DR. ELLEN CM Please exercise your independent, professional judgment in responding to the clarification form. Clinical indicators are provided on the bottom of this form for your review Please check appropriate box(s): [ ] Protein Calorie Malnutrition: [ ] Mild [ x ] Moderate [ ] Severe [ ] Other Malnutrition (please specify) __ [ ] Other diagnosis [ ] Unable to determine In addition, please specify: Present on Admission (POA): [ x] Yes [ ] No [ ] Unable to determine CLINICAL INDICATORS - SIGNS / SYMPTOMS / LABS BMI of 24.7 ER DX: ABD PAIN, INTERSTITIAL FIBROSIS, NAUSEA, VOMITING, DIARRHEA ER DOCUMENTATION: DIARRHEA WORSE WITH EATING, PT REPORTS LOSS OF APPETITE H&P: SHE HAS NOT BEEN HAVING MUCH OF AN APPETITE AN HAS NOT BEEN EATING VERY MUCH, SHE BARELY TAKES 2 SPOONS OF APPLESAUCE OR YOGURT AND WILL FEEL FULL AND WILL STOP EATING, SHE GETS NAUSEATED WITH FOOD OR WITHOUT FOOD H&P: MALNUTRITION APPEARS TO BE MODERATE TO SEVERE, SHE HAS LOST SOME POUNDS; HOWEVER, WAS UNABLE TO TELL ME EXACTLY HOW MANY POUNDS. RISK FACTORS: ORDNANCE TRUCK INSTALLATION MECHANIC CONSULT 12-15-17: MALNUTRITION RELATED TO N/V, diarrhea , abdominal pain, poor appetite ORDNANCE TRUCK INSTALLATION MECHANIC CONSULT 12-15-17: The pt has had a low appetite for 4 weeks with N/V, abdominal pain, and diarrhea. At home she was only eating 1-2 spoon fulls a few times per day of foods like yogurt and applesauce. She would take a few ounces of Ensure mixed with ice cream, 1 month ago she was weighing 138 #, but this was w/ extra fluid. She lost the fluid then weighed 127#, and has since lost down to 121 in the last 4 weeks, minimal po intake and 5% wt loss over the last 4 weeks TREATMENT: H&P: WE WILL START HER ON REGULAR DIET AND ALSO PUT HER ON HER APPETITE STIMULANT AND ALSO CONSIDER STARTING HER ON SOME ENSURE ORDNANCE TRUCK INSTALLATION MECHANIC CONSULT 12-15-17: The pt has had a low appetite for 4 weeks with N/V, abdominal pain, and diarrhea. At home she was only eating 1-2 spoonfuls a few times per day of foods like yogurt and applesauce. She would take a few ounces of Ensure mixed with ice cream, 1 month ago she was weighing 138#, but this was w / extra fluid. She lost the fluid then weighed 127#, and has since lost down to 121 in the last 4 weeks, minimal po intake and 5% wt loss over the last 4 weeks Moderate Malnutrition (in acute illness) Energy Intake: <75% of estimated energy requirement for > 7 days Weight Loss: 1-2%/1 week; 5%/ 1 month; 7.5%/3 months Other: mild body fat loss; mild muscle mass loss; mild fluid accumulation; Severe Malnutrition (in acute illness) Energy Intake: < 50% of estimated energy requirement for > 5 days Weight Loss: >1-2%/1 week; >5%/1 month; >7.5%/3 months Other: moderate body fat loss; moderate muscle mass loss; moderate- severe fluid accumulation; measurably reduced semiconductor processing technician strength Moderate Malnutrition (in chronic illness) Energy Intake: <75% of estimated energy requirement for >1 month Weight Loss: 5%/1 month; 7.5%/3 months; 10%/6 months; 20%/1 year Other: mild body fat loss; mild muscle mass loss; mild fluid accumulation Severe Malnutrition (in chronic illness) Energy Intake: <75% of estimated energy requirement for >1 month Weight Loss: >5%/1 month; >7.5%/3 months; >10%/6 months; >20%/1 year Other: severe body fat loss; severe muscle mass loss; severe fluid accumulation ; measurably reduced semiconductor processing technician strength (This form is maintained as a part of the permanent medical record) 2014 [employer] All Rights Reserved LOCO [email or web address] Office: [phone] [facility]ASS[facility] HOSPITALSung
--- NOTE | 2017-12-16 14:08 | PRG ---
DATE OF SERVICE: 12/16/2017 SUBJECTIVE: The patient is doing well. Her abdominal pain is less. She has had no nausea or vomiti ng. She is still not eating much. She had one bowel movement yesterday, none today. The family has declined endoscopic evaluation. OBJECTIVE: VITAL SIGNS: Temperature 97.6, pulse 120, respiratory rate 19, blood pressure 102/71. HEENT: Unremarkable. CHEST: Show rhonchi and some crackles. CARDIOVASCULAR: Regular rate and rhythm. ABDOMEN: Soft, nontender without organomegaly or masses. LABORATORY DATA: No new laboratory. Chest x-ray shows a stable appearance. ASSESSMENT: 1. Anorexia. 2. Dehydration. 3. Lower abdominal cramps. 4. Pulmonary fibrosis and pulmonary hypertension. RECOMMENDATIONS: 1. Hold on EGD and flexible sigmoidoscopy. 2. Continue proton pump inhibitor.
--- NOTE | 2017-12-16 14:14 | PQF ---
DATE: 12-16-17 ATTN: DR. ELLEN CM Please exercise your independent, professional judgment in responding to the clarification form. Clinical indicators are provided on the bottom of this form for your review Please check appropriate box(s): [ x ] Acute Renal Failure (ARF) / Acute Kidney Injury (CRICKET) [ ] Acute on Chronic Renal Failure please specify Stage of CKD (see below) [ ] CKD without ARF/CRICKET please specify Stage of CKD [ ] Other diagnosis [ ] Unable to determine In addition, please specify: Present on Admission (POA): [ x] Yes [ ] No [ ] Unable to determine National Kidney Foundation Guidelines for CKD Staging Stage I Kidney damage with normal or increased GFR GFR > 90 Stage II Kidney damage with mildly decreased GFR GFR 60-89 Stage III Kidney damage with moderately decreased GFR GFR 30-59 Stage IV Kidney damage with severely decreased GFR GFR 16-29 Stage V Kidney failure GFR<15 ESRD End Stage Renal Disease On dialysis Acute Renal Failure/Acute Kidney Failure defined as: Increases in SCr by (>) 0.3 mg/dl within 48 hours OR- Increases in SCr by (>) 1.5 times baseline, known or presumed to have occurred within the prior 7 days OR- Urine volume < 0.5 ml/kg/hour for 6 hours (KDIGO supplement 2012 for RIFLE/TESSA criteria) For continuity of documentation, please document condition throughout progress notes and discharge summary. Thank You. CLINICAL INDICATORS - SIGNS / SYMPTOMS / LABS: ER DX: ABD PAIN, INTERSTITIAL FIBROSIS, N,V,D GFR: 12-13-17: 40 18: 55 18: 45 12-15-17: 66 CREATININE: 18: 1.29 7-18: 0.97 7-18: 1.16 18: 0.83 BUN: 18: 35 18: 28 7-8-18: 27 79-18: 22 H&P: CHRONIC KIDNEY DISEASE. WE WILL CONTINUE TO MONITOR. RISK FACTORS: ER DX: ABD PAIN, INTERSTITIAL FIBROSIS, N,V,D H&P: CHRONIC KIDNEY DISEASE. CONSULT NOTE DR. CLEMONS 12-15-17: SEVERE DEHYDRATION TREATMENTS: H&P: CHRONIC KIDNEY DISEASE. WE WILL CONTINUE TO MONITOR. CONSULT NOTE DR. CLEMONS 12-15-17: SEVERE DEHYDRATION, PRIMARY TEAM CURRENTLY REHYDRATION (This form is maintained as a part of the permanent medical record) 2015 [employer] All Rights Reserved LOCO [email or web address] Office: [phone] [facility] SYSTEMSung
--- NOTE | 2017-12-16 14:37 | PQF ---
DATE: 12-16-17 ATTN: DR. ERNESTINA CM Please exercise your independent, professional judgment in responding to the clarification form. Clinical indicators are provided on the bottom of this form for your review Please check appropriate box(s): [ x] Demand Ischemia [ ] AK Type: ( ) [ ] Other [ ] Other diagnosis [ ] Unable to determine In addition, please specify: Present on Admission (POA): [ x] Yes [ ] No [ ] Unable to determine CLINICAL INDICATORS - SIGNS / SYMPTOMS / LABS: TROPONIN: 12-13-17: 1.191 12-13-17: 1.085 12-13-17: 1.112 ER DX: ABD PAIN, INTERSTITIAL FIBROSIS, NAUSEA, VOMITING, DIARRHEA H&P: WAS JUST D/C FROM HOSPITAL ON 11-08-17 INITIALLY TREATED FOR ACUTE HYPOXIC RESPIRATORY FAILURE AND ALSO FOR SVT. HX OF HTN, GERD, SVT, COPD, PULMONARY FIBROSIS. ELEVATED TROPONIN. WE WILL AGAIN PUT HER ON ASPIRIN AND STATIN, AND ALSO A LOVENOX OR HEPARIN AND CONSULT CARDIOLOGY. I AM NOT SURE IF THIS IS SECONDARY TO HER UNDERLYING NAUSEA, VOMITING , ABDOMINAL PAIN, DEHYDRATION, IN TERMS OF DEMAND ISCHEMIA VS SOMETHING ACUTE ESPECIALLY GIVEN HER HX OF RA. CONSULT NOTE DR. MIRANDA 12-14-17: ELEVATED TROP LEVEL, PROBABLY 2/2 TO DEMAND ISCHEMIA RISKS: H&P: WAS JUST D/C FROM HOSPITAL ON 11-08-17 INITIALLY TREATED FOR ACUTE HYPOXIC RESPIRATORY FAILURE AND ALSO FOR SVT. HX OF HTN, GERD, SVT, COPD, PULMONARY FIBROSIS. TREATMENTS: CARDIOLOGY CONSULT (This form is maintained as a part of the permanent medical record) 2014 [employer]. All Rights Reserved LOCO [email or web address] Office: [phone] [facility]
[2017-12-16] MEDS: Lorazepam 0.5 MG TAB PO SCH (20:57)
--- NOTE | 2017-12-16 21:23 | PDOC.PN ---
- Subjective Encounter Start Date: 12/16/17 Encounter Start Time: 11:30 Subjective: pt up in bed no complains - Objective Resuscitation Status: Resuscitation Status FULL:Full Resuscitation Vital Signs & Weight: Vital Signs (12 hours) Temp Pulse Pulse Pulse Resp BP BP 12/16/17 19:31 97.4 F L 106 H 30 H 12/16/17 19:18 106 H 22 H 12/16/17 15:10 97.8 F 120 H 22 H 12/16/17 14:31 109 H 22 H 12/16/17 11:39 97.6 F 120 H 19 12/16/17 11:24 134 H 126 H 110/74 95/62 BP Pulse Ox Pulse Ox Pulse Ox 12/16/17 19:31 111/72 96 12/16/17 19:18 99 12/16/17 15:10 107/78 89 L 12/16/17 14:31 93 L 12/16/17 11:39 102/71 92 L 12/16/17 11:24 88 L 92 L Weight Admit Weight 121 lb 8 oz Weight 130 lb 9 oz I&O: 12/15/17 12/16/17 12/17/17 06:59 06:59 06:59 Intake Total 1240 540 750 Balance 1240 540 750 Result Diagrams: 12/14/17 03:42 12/15/17 03:52 Phys Exam - Physical Examination HEENT: PERRLA, moist MMs, sclera anicteric, TM's clear, oral pharynx no lesions , 2+ tonsils Neck: no nodes, no JVD, supple, full ROM crackles to bases Cardiovascular: RRR, no significant murmur, no rub, gallop, irregular Gastrointestinal: soft, non-tender, no distention, positive bowel sounds Dx/Plan (1) Abdominal pain Code(s): R10.9 - UNSPECIFIED ABDOMINAL PAIN Status: Acute (2) Nausea & vomiting Code(s): R11.2 - NAUSEA WITH VOMITING, UNSPECIFIED Status: Acute (3) Loss of appetite Code(s): R63.0 - ANOREXIA Status: Acute (4) Pulmonary fibrosis Code(s): J84.10 - PULMONARY FIBROSIS, UNSPECIFIED Status: Chronic Comment: Continue pulmonary supportive mgmt, continue Anoro Ellipta, d/c prednisone as of 11/05/17 . patient on baseline Dafluzicort at home. (5) Malnutrition Code(s): E46 - UNSPECIFIED PROTEIN-CALORIE MALNUTRITION Status: Acute Comment: moderate - Plan pt refuses egd/sig -: will start pt on megace since pt's daughter feels she gets anxious -: spoke with her about code status still wants to be full code * . Review of Systems - Review of Systems Constitutional: weakness ENT: negative: Ear Pain, Ear Discharge, Nose Pain, Nose Discharge, Nose Congestion, Mouth Pain, Mouth Swelling, Throat Pain, Throat Swelling, Other Respiratory: Shortness of Breath Cardiovascular: negative: chest pain, palpitations, orthopnea, paroxysmal nocturnal dyspnea, edema, light headedness, other Gastrointestinal: negative: Nausea, Vomiting, Abdominal Pain, Diarrhea, Constipation, Melena, Hematochezia, Other - Medications/Allergies Allergies/Adverse Reactions: Allergies Allergy/AdvReac Type Severity Reaction Status Date / Time Penicillins Allergy Verified 10/31/17 10:32 sulfamethoxazole Allergy Verified 10/31/17 10:32 [From Bactrim] trimethoprim [From Bactrim] Allergy Verified 10/31/17 10:32 Medications: Current Medications Albuterol/Ipratropium (Duoneb) 3 ml NEB [id number] [facility] Last Admin: 12/16/17 19:18 Dose: 3 ml Aspirin (Ecotrin) 81 mg PO DAILY [facility] Last Admin: 12/16/17 08:27 Dose: 81 mg Budesonide (Pulmicort Neb Solution) 0.25 mg INH BID-RT [facility] Last Admin: 12/16/17 19:19 Dose: 0.25 mg Dicyclomine HCl (Bentyl) 10 mg PO BID PRN PRN Reason: Pain Digoxin (Lanoxin) 0.125 mg PO MWF [facility] Lorazepam (Ativan) 0.5 mg PO HS [facility] Last Admin: 12/16/17 20:57 Dose: 0.5 mg Lorazepam (Ativan) 0.5 mg PO BID PRN PRN Reason: Anxiety/Agitation Last Admin: 12/15/17 23:45 Dose: 0.5 mg Megestrol Acetate (Megace) 40 mg PO DAILY [facility] Pantoprazole Sodium (Protonix) 40 mg IVP Q12HR [facility] Last Admin: 12/16/17 20:57 Dose: 40 mg Xeljanz Sr 11 Mg 0 each PO DAILY [facility] Last Admin: 12/16/17 08:27 Dose: 1 each Prednisone (Prednisone) 20 mg PO QAM-WM [facility] Last Admin: 12/16/17 08:27 Dose: 20 mg Sodium Chloride (Flush - Normal Saline) 10 ml IVF Q12HR [facility] Last Admin: 12/16/17 20:57 Dose: 10 ml Sodium Chloride (Flush - Normal Saline) 10 ml IVF PRN PRN PRN Reason: Saline Flush
[2017-12-17 04:36] LABS: Anion Gap 15 mmol/L (10-20); BUN (Urea Nitrogen) 27 mg/dL (9.8-20.1); Calc. Creatinine Clearance 45 mL/min (70-130); Calcium 7.7 mg/dL (7.8-10.44); Carbon Dioxide 22 mmol/L (23-31); Chloride 105 mmol/L (98-107); Estimated GFR-MDRD 57; Glucose 109 mg/dL (83-110); Magnesium 1.6 mg/dL (1.6-2.6); Potassium 3.9 mmol/L (3.5-5.1); Sodium 138 mmol/L (136-145)
[2017-12-17 04:38] LABS: Phosphorus 1.5 mg/dL (2.3-4.7)
[2017-12-17 04:39] LABS: Digoxin 1.27 ng/mL (0.8-2.0)
[2017-12-17] MEDS: Budesonide 0.25 MG/2 ML NEB INH SCH (06:08)
[2017-12-17] MEDS: Aspirin 81 mg Enteric Coated Tablet PO SCH (08:53)
[2017-12-17] MEDS: Pantoprazole 40 MG VIAL IVP SCH (08:54)
[2017-12-17] MEDS: predniSONE 20 MG TAB PO SCH (08:54)
[2017-12-17] MEDS: XELJANZ 11 MG PO SCH (08:55)
[2017-12-17] MEDS ORDERED: Digoxin 0.125 MG TAB PO SCH (09:00)
[2017-12-17] MEDS ORDERED: Megestrol Acetate 40 MG TAB PO SCH (09:00)
[2017-12-17] MEDS ORDERED: Furosemide 20 MG TAB PO SCH (09:00)
[2017-12-17] MEDS ORDERED: Potassium Phosphate 9 MMOL in Sodium Chloride 0.9% 100 ML IVPB SCH (10:00)
[2017-12-17] MEDS: Lorazepam 0.5 MG TAB PO PRN (11:59)
--- NOTE | 2017-12-17 12:38 | PRG ---
DATE OF SERVICE: 12/17/2017 SUBJECTIVE: The patient's daughter reports she is eating better. She is having less abdominal pain. OBJECTIVE: VITAL SIGNS: Temperature 96.5, pulse 109, respiratory rate 39, blood pressure 177/65. CHEST: Clear. CARDIOVASCULAR: Regular rate and rhythm. ABDOMEN: Benign. ASSESSMENT: 1. Pulmonary fibrosis and pulmonary hypertension. 2. Abdominal pain and dyspepsia - seems to be doing better on proton pump inhibitor. RECOMMENDATIONS: 1. The patient has a follow up with me. 2. Continue proton pump inhibitor. 3. We will sign off.
[2017-12-17] MEDS ORDERED: Furosemide 20 MG/2 ML VIAL SLOW IVP SCH (12:45)
[2017-12-17] MEDS ORDERED: Potassium Phosphate 30 MMOL in Sodium Chloride 0.9% 500 ML IVPB SCH (12:45)
[2017-12-17] MEDS ORDERED: Magnesium Sulfate 2 GM in Sodium Chloride 0.9% 100 ML IVPB SCH (12:45)
--- NOTE | 2017-12-17 13:03 | PRG ---
DATE OF SERVICE: 12/17/2017 SERVICE: Pulmonary Medicine INTERVAL HISTORY: The patient is doing very poorly from a respiratory standpoint. She demonstrates pretty severe weakness. She has yet to be out of bed today. She is refusing to get out of bed this morning when discussing with nurses. That being said, at the same time [facility] At baseline, she is able to get up in a wheelchair and move around that way. She denies having a ny shortness of breath, but she does have mild respiratory distress. She is currently on 3 liters na mickie cannula and otherwise doing fairly well. She denies having any cough or chest discomfort. We arnold d a brief discussion about end of life issues. At this point, she is not ready to proceed with [facility]. I did request that she discussed with her family what limits she would have moving forward. She does appreciate that if she ever gets intubated, that she is unlikely to get extubated without a tracheostomy. PHYSICAL EXAMINATION: VITAL SIGNS: Afebrile, pulse 109, blood pressure 177/65, respirations 39, saturation 94% on 40% FiO2 via Venturi mask. HEENT: Normocephalic, atraumatic. Sclerae are white, conjunctivae pink. Oral mucosa is moist witho ut lesions. LUNGS: Decent air entry. Crackles are present. They are more pronounced on the right. No prolonge d expiratory phase or wheezing is appreciated. HEART: Normal rate, regular. ABDOMEN: Soft, nontender, nondistended. Bowel sounds are positive. MUSCULOSKELETAL: No cyanosis or clubbing. There is trace pitting in the bilateral lower extremities . NEUROLOGIC: Grossly nonfocal. LABORATORY: Basic metabolic profile is otherwise unremarkable. Phosphorus is 1.5 and magnesium 1.6. Potassium 3.9. ASSESSMENT: 1. Acute on chronic hypoxic respiratory failure. 2. Pulmonary fibrosis. 3. Rheumatoid arthritis associated interstitial lung disease. 4. Pulmonary hypertension, severe. 5. Abdominal pain. DISCUSSION AND PLAN: We will continue to cautiously diurese her to euvolemia. I will try to mobiliz e her today and get her into a chair. If she demonstrates good strength and requires less oxygen, sh desire can be considered for transition out of the hospital today. Magnesium and phosphorus will be repla marjorie. Pulmonary Critical Care will continue to follow along while she remains in the hospital. Ultim ately, transition to comfort care is going to be indicated as the patient has a deteriorating physica l status and has an advanced disease process that does not have a cure. That being said, she is not interested in pursuing comfort measures.
[2017-12-17 14:12] VITALS: BMI 24.6
[2017-12-17 15:57] VITALS: BP 114/63; TEMP 97.5
--- NOTE | 2017-12-18 02:44 | DIS ---
DISCHARGE DIAGNOSES: As of the followin. Abdominal pain, nausea, vomiting. 2. Elevated troponins. 3. Loss of appetite, failure to thrive. 4. Malnutrition, moderate. 5. Pulmonary fibrosis. HOSPITAL COURSE: Patient is a 77-year-old female with history of pulmonary fibrosis on home oxygen w ho initially presented to the hospital on 12/13/2017 with abdominal pain, nausea, vomiting going on f or 3-4 weeks. Patient also at that time had diarrhea; however, her diarrhea had improved prior to co efren to the hospital. Patient's family, especially daughter who was at the bedside stated that marce conrad has been dry heaving and not eating very much and had a complaint of abdominal pain. Patient at t hat time was put on a PPI, also stools samples were collected. There were concerns of some adrenal i nsufficiency given the fact that patient was on chronic steroids. Also, there were concerns or possi ble gastritis or ulcers given the fact that she was eating, taking all her medications and has not be en eating very much. There has been a significant amount of weight loss according to the family; how ever, unknown amount of weight that was lost. Patient states that she does not have an appetite much for food. Patient also was found to have elevated troponins in the high levels. However, no chest pain or EKG changes at this time. Cardiology was consulted; however, Cardiology thought most likely her elevated troponins were most likely secondary to demand ischemia and no other further treatment w as pursued. Patient also was seen by Gastroenterology who recommended an EGD and a flexible sigmoido scopy; however, the patient refused the procedure. Multiple attempts including palliative care consu lt were approached to patient and patient's daughter; however, at this time, they were not interested in palliative care or even changing the code status to DNR. I explained in details in regards to re suscitation if it happened to be her outcome given her diagnosis of pulmonary fibrosis would be very poor. However, at this time, patient nor the patient's daughter wanted to decide in regard to resusc itation status. Patient will be continued on a PPI twice a day as she seems to have improved. Her a bdominal pains have improved. According to the daughter, she has been tolerating her Ensure Clear an d has been actually eating starting to eat a little bit. She has no more diarrhea. When she had laquita rrhea in the hospital, her stool was checked which was essentially negative. She just had some eleva sae WBCs in her stool. Patient will be discharged home. She will follow up with her primary care do ctor as needed. MEDICATIONS: Her discharge home medications are as of the following: She takes budesonide inhalatio n twice a day, Celexa 20 mg q.a.m., Lasix 40 mg q.a.m., lorazepam 0.5 mg at bedtime, digoxin 0.125 p. o. daily, prednisone 20 mg daily. She is on Anoro Ellipta 1 inhalation daily, aspirin 81 mg daily, P rotonix 40 mg b.i.d., Megace 40 mg daily for appetite stimulation, Ativan 0.5 at bedtime p.r.n., alpr azolam 0.25 mg daily. Patient's daughter requested Xanax which helped patient's anxiety, especially when she gets very short of breath, I will prescribe her a few Xanax. PHYSICAL EXAMINATION: VITAL SIGNS: Temperature 96.5, heart rate of 101, respirations are between 20. She is 95% on 3-5 li ters, blood pressure is 115/73. GENERAL: She is awake, alert, oriented x3, does not appear in any distress. CARDIOVASCULAR: S1, S2 present. No murmurs, rubs or gallops. LUNGS: She has got mild crackles to bilateral lower bases. ABDOMEN: Soft, nontender. Bowel sounds are present x2. She has got no pain upon palpation. EXTREMITIES: No edema. Pedal pulses are present x2. NEUROLOGIC: No focal deficits noted. DISCHARGE INSTRUCTIONS: Patient will be discharged home. Patient and her daughter refused to go to rehabilitation. Daughter states that she has got all the facilities at home to take care of her moth er including home health and PT will be ordered if required. She also has oxygen at home which also will be taken care of by the case management. Again, patient's overall diagnosis is guarded and they are aware of it; however, at this time, do not pursue any change in code status. Patient will be di scharged home. Follow up again with primary and also with GI as needed and Pulmonary.
== END 2017-12-17 17:47 | disposition home health service (06) | DRG 391 ==
LOC: ERS 14:42 → IMCU/EMU 17:07 → T4-A 12-14 12:25 → IMCU/EMU 12-15 19:27
PROVIDERS: ADMIT Internal Medicine; ATTEND Internal Medicine
DX: K29.70 Gastritis, unspecified, without bleeding (principal); J96.21 Acute and chronic respiratory failure with hypoxia; E27.40 Unspecified adrenocortical insufficiency; I24.8 Other forms of acute ischemic heart disease; E87.2 Acidosis; I47.1 Supraventricular tachycardia; E44.0 Moderate protein-calorie malnutrition; N17.9 Acute kidney failure, unspecified; R62.7 Adult failure to thrive; J84.10 Pulmonary fibrosis, unspecified; R19.7 Diarrhea, unspecified; E86.0 Dehydration; Z53.29 Procedure and treatment not carried out because of patient's decision for other reasons; I12.9 Hypertensive chronic kidney disease with stage 1 through stage 4 chronic kidney disease, or unspecified chronic kidney disease; N18.9 Chronic kidney disease, unspecified; I27.20 Pulmonary hypertension, unspecified; J44.9 Chronic obstructive pulmonary disease, unspecified; I07.1 Rheumatic tricuspid insufficiency; K21.9 Gastro-esophageal reflux disease without esophagitis; R19.8 Other specified symptoms and signs involving the digestive system and abdomen; M06.9 Rheumatoid arthritis, unspecified; I95.9 Hypotension, unspecified; F41.9 Anxiety disorder, unspecified; Z99.81 Dependence on supplemental oxygen; Z87.891 Personal history of nicotine dependence; Z68.24 Body mass index [BMI] 24.0-24.9, adult; Z88.2 Allergy status to sulfonamides; Z88.0 Allergy status to penicillin; Z79.82 Long term (current) use of aspirin; Z79.52 Long term (current) use of systemic steroids; Z79.899 Other long term (current) drug therapy
CPT/HCPCS: 36415; 51701; 71045; 74177; 80048; 80053; 80162; 81003; 81015; 82533; 82550; 82553; 82607; 82805; 83605; 83630; 83690; 83735; 83880; 84100; 84443; 84484; 85025; 85520; 85610; 85730; 87045; 87046; 87081; 87086; 87177; 87324; 87449; 87899; 93005; 93010; 94640; 94760; 96360; 96361; A4216; A4353; C9113; G8978-GP-CM; G8978-GP-CN; G8979-GP-CL; J1650; J1720; J1940; J2930; J3475; J3480; J7050; J7506; J7620; J7626; Q0167; S0179